=== PATIENT | female | born 1990 | race Caucasian/White ===

== ENCOUNTER 2019-11-09 23:28 | Emergency (ER) | payer OTHER, SELFPAY ==
[2019-11-09 23:38] VITALS: BP 190/89; PULSE 103; RESP 19; TEMP 36.5; O2SAT 95; BMI 25.4
[2019-11-09] MEDS: famotidine 20 mg/2 mL INJ 40 MG IVP (23:55)
[2019-11-09] MEDS: diphenhydrAMINE 50 mg/mL SDV 1mL IVP (23:55)
--- NOTE | 2019-11-10 00:06 | W.ED.ALLEREA ---
HPI - Allergic Reaction General: Chief complaint: Allergic Reaction Stated complaint: poss allergic reaction Time Seen by Provider: 11/09/19 23:52 Source: patient Mode of arrival: ambulatory Limitations: no limitations History of Present Illness: HPI narrative: Quita is a nice 29-year-old female who comes in complaining of allergic reaction. She believes she was exposed to a type of disinfectant that is causing her to act like this. She has diffuse hives and skin itching. She states she feels a little bit of tickling in her throat but otherwise denies any swallowing difficulties, shortness of breath or other complaints. Associated symptoms: Deny abdominal pain, dizziness, facial swelling, hoarseness, nausea, tongue swelling or vomiting Review of Systems Const: Denies: fever(s), chills, body aches, fatigue, malaise or diaphoresis Eyes: Denies: change in vision, blurry vision, photophobia, eye discomfort, eye discharge or eye redness ENMT: Denies: throat pain, odynophagia, hoarseness, swelling of lips/tongue, ear or mastoid pain, ear discharge, change in hearing or nasal discharge Card: Denies: chest pain, palpitations, irregular heart rhythm, edema, lightheadedness, syncope, pre-syncope, dyspnea on exertion or orthopnea Resp: Denies: dyspnea, productive cough, non-productive cough, wheezing, hemoptysis or chest congestion GI: Denies: abdominal pain, nausea, vomiting, hematemesis, coffee ground emesis, heartburn, diarrhea, constipation, GI cramping, hematochezia or melena : Denies: flank pain, dysuria, urinary frequency, urinary urgency or hematuria Musc: Denies: neck pain, back pain, extremity pain, extremity swelling, joint pain, joint swelling, joint redness, joint warmth or joint stiffness Skin/Breast: Denies: rash, pruritus, erythema or skin tenderness Neuro: Denies: headache(s), numbness in extremities, weakness in extremities, sensory changes, lack of coordination, difficulty walking, dizziness, vertigo, confusion, Slurred speech present or seizure-like activity Supa/Lymph: Denies: easy bruising, easy bleeding, petechiae, purpura or enlarged lymph nodes All/Imm: Reports: urticaria and throat swelling; Denies: tongue swelling, facial swelling or acute wheezing PFSH ED PFSH: Medical History No pertinent past medical history Surgical History No pertinent past surgical history Female Reproductive History: Date of last menstrual period: 11/09/19 Physical Exam Const: COMMON NORMALS: no acute distress, patient oriented x3, no limitations, healthy appearing and well nourished GENERAL APPEARANCE: cooperative, well kempt and well developed HENMT: COMMON NORMALS: normocephalic, atraumatic, external ears normal, EAC's normal and Normal external nose present HEAD & SCALP: normal to inspection, normocephalic and atraumatic FACE & SINUS: normal facial exam and face symmetric NOSE: Normal external nose present and Normal nares present EXTERNAL EAR: Yes external ears normal EXTERNAL AUDITORY CANAL: EAC's normal MOUTH: Normal oral and palatal mucosa present, lip normal and tongue normal Eye: COMMON NORMALS: Equal, round and reactive pupils present and conjunctivae normal GENERAL EYE: appearance normal, both eyes and all related structures ALIGNMENT: Yes alignment normal PERIORBITAL: periorbital findings normal EYELID: eyelids normal CONJUNCTIVA: Yes conjunctivae normal SCLERA: sclerae normal PUPIL: Yes Equal, round and reactive pupils present Neck/C-Spine: COMMON NORMALS: full ROM, no lymphadenopathy, supple, no meningeal signs and no JVD GENERAL: Yes normal visual inspection and Yes trachea midline Chest: COMMONS NORMALS: normal inspection of the chest and normal palpation of entire chest wall Resp: COMMON NORMALS: normal respiratory effort, No retractions, No use of accessory muscles and clear to auscultation bilaterally EFFORT & INSPECTION: Yes able to speak in complete sentences and Yes symmetric chest movement AUSCULTATION: clear to auscultation bilaterally, no crackles, no rales, no rhonchi and no wheezes Cardio: COMMON NORMALS: no JVD, regular rate, regular rhythm, S1 normal heart sound present and S2 normal heart sound present RATE: regular rate RHYTHM: regular rhythm HEART SOUNDS: S1 normal heart sound present, S2 normal heart sound present, no click, no gallops, no murmurs, no rubs and abnormal split S2 GI: COMMON NORMALS: Soft to palpation and No hepatosplenomegaly present PALPATION: Yes Soft to palpation, No Tenderness to palpation present (GI), No Guarding due to palpation present (GI), No Rigid due to palpation, Yes No hepatosplenomegaly present, No Hernia present, No Palpable mass present and No Pulsatile mass present : COMMON NORMALS: Yes no CVA tenderness BLADDER/KIDNEY EXAM: Yes no CVA tenderness EXTERNAL FEMALE EXAM: No Hernia present Back/Pelvis: COMMON NORMALS: no CVA tenderness, thoracic and lumbar spine normal to inspection, no thoracic nor lumbar tenderness and thoraco-lumbar ROM normal Extremity: COMMON NORMALS: normal to inspection, full ROM, capillary refill normal, no joint enlargement, no clubbing, cyanosis or edema and no calf tenderness Neuro: COMMON NORMALS: patient oriented x3, CN's II-XII intact bilaterally, moves all extremities, no focal motor deficits and no sensory deficits noted MENINGEAL SIGNS: Yes no meningeal signs SPEECH: speech normal Psych: COMMON NORMALS: mental status grossly normal, Normal thought process present, cooperative, normal affect, speech normal and activity/motor behavior normal APPEARANCE: Yes well kempt SPEECH: Yes normal speech THOUGHT PROCESS: Normal thought process present Skin: COMMON NORMALS: turgor normal, no jaundice, no petechiae and no mottling NARRATIVE SKIN EXAM: Diffuse hives of the torso and extremities GENERAL SKIN EXAM: turgor normal Course Vital Signs: Vital signs: Vital Signs Temperature 97.7 F 11/09/19 23:38 Pulse Rate 87 11/10/19 01:24 Respiratory Rate 16 11/10/19 01:24 Blood Pressure 151/92 11/10/19 01:24 Pulse Oximetry 94 11/10/19 01:24 MDM - Allergic Reaction MDM Narrative: Medical decision making narrative: Patient is feeling tremendously better and is ready to go home. Her hives of almost completely gone. She agrees to return should her symptoms change or worsen but at this time she is ready for discharge. Discharge Plan Discharge Patient Disposition: Home Clinical Impression: Allergic reaction Qualifiers: Encounter type: initial encounter Qualified Code(s): T78.40XA - Allergy, unspecified, initial encounter Condition: Stable Prescriptions: New prednisone 10 mg tablet 20 mg PO BID 5 Days Qty: 20 RF: 0 Discharge Orders: Discharge Order (Routine); Ordered 11/10/19 Ordered By: Milagro Alberto Referrals: Sean Paula MD [Primary Care Provider] - 1-3 days Discharge Diet: Advance as tolerated Discharge Activity: Increase activity as tolerated Patient Instructions: Urticaria (ED) Activity Restrictions/Additional Instructions: Please return to the ER immediately for any of the signs or symptoms listed on your discharge instruction sheets, worsening/changing of your symptoms, you are not getting better as quickly as expected, or for ANY other cause or concerns. For the next 2 days take Benadryl 25 to 50 mg every 6 hours. Also over the next 2 days take Pepcid 40 mg every 12 hours. Return to the ER for worsening of your hives, new onset of throat tightening or shortness of breath or for any other cause for concern. Discharge Date/Time: 11/10/19 01:30 Coding Level of Care Code ED Railroad Purchasing Agent for Bryant Fwcharli Exam Comprehensive
[2019-11-10 00:23] VITALS: BP 198/124; PULSE 81; RESP 18; O2SAT 95
[2019-11-10 01:24] VITALS: BP 151/92; PULSE 87; RESP 16; O2SAT 94
[2019-11-10] MEDS: predniSONE 20 mg Tablet 50 MG PO (01:24)
== END 2019-11-10 01:30 | disposition home or self-care (01) ==
PROVIDERS: Emergency Provider Emergency Medicine; PCP Family Medicine
DX: T78.40XA Allergy, unspecified, initial encounter (principal)
CPT/HCPCS: 12345; 96374; 96375; 99282; 99283; J1200; J2930; J3490; J7512

== ENCOUNTER 2021-03-17 17:06 | Emergency (ER) | payer OTHER, SELFPAY ==
[2021-03-17 17:13] VITALS: BP 206/109; PULSE 115; RESP 24; TEMP 37.2; O2SAT 90; BMI 22.6
--- NOTE | 2021-03-17 17:21 | ECG_ITS ---
[facility] Test Date: 2021-03-17 Pat Name: Quita Hairston Department: Room: Gender: Female Sponge Diver: : 1990 Requested By: Arturo Shane Order Number: [id number] Alston MD: Pauline Gardner M.D. Measurements Intervals Gate Rate: 111 P: 74 MN: 176 QRS: 80 QRSD: 67 T: 67 QT: 295 QTc: 401 Interpretive Statements SINUS TACHYCARDIA POSSIBLE LEFT ATRIAL ENLARGEMENT [-0.1mV P-WAVE IN V1/V2] NONSPECIFIC T-WAVE ABNORMALITY Compared to ECG 11/19/2017 12:21:56 Sinus rhythm no longer present T-wave abnormality still present Electronically Signed On 03-17-2021 22:02:05 [employer] by Pauline Gardner M.D. [id number]
--- NOTE | 2021-03-17 17:21 | XRR_ITS ---
PROCEDURE INFORMATION: Exam: XR Chest Exam date and time: 03/17/2021 5:21 PM Age: 30 years old Clinical indication: Shortness of breath; Sternal or substernal pain; Additional info: SOB and cp TECHNIQUE: Imaging protocol: XR of the chest. Views: 1 view. COMPARISON: CR Chest 1 [place] [id number] 11/19/2017 1:10 PM FINDINGS: Lungs: Unremarkable. No consolidation. Pleural spaces: Unremarkable. No pleural effusion. No pneumothorax. Heart/Mediastinum: Unremarkable. No cardiomegaly. Bones/joints: Unremarkable. XR/XR chest 1V portable [id number] IMPRESSION: No acute findings.
--- NOTE | 2021-03-17 17:27 | ED_ITS ---
HPI - SOB/Dyspnea General: Chief Complaint: Shortness of Breath/Dyspnea Stated Complaint: Sent by [facility] b/c o2 were dropping Time Seen by Provider: 03/17/21 17:45 History of Present Illness: HPI Narrative: Patient is a 30-year-old female comes to the ED with shortness of breath. Patient was seen over at [facility] earlier today and she was told to come here to the ED due to her O2 saturation levels dropping. Patient says yesterday she started having a sore throat and some nasal drainage and congestion. Today she woke up and was having some wheezing, shortness of breath and chest pressure type pain. Cough is dry and nonproductive. She also reports having some body aches as well. She does have a history of some asthma and uses a rescue inhaler when at home. In the past whenever she gets any upper respiratory infection she states it always goes down into her lungs. Associated symptoms: Reports chest pain; Deny abdominal pain, fever(s), nausea, orthopnea, palpitations or vomiting Review of Systems Const: Reports: body aches and fatigue; Denies: fever(s) or chills Eyes: Denies: change in vision or eye discomfort ENMT: Reports: throat pain, nasal discharge and nasal congestion; Denies: odynophagia Card: Reports: chest pain; Denies: palpitations, edema, swelling of feet/ankles, dyspnea on exertion or orthopnea Resp: Reports: dyspnea and non-productive cough; Denies: productive cough GI: Denies: abdominal pain, nausea, vomiting, diarrhea, constipation or hematochezia : Denies: flank pain, dysuria or hematuria Musc: Denies: neck pain, back pain or extremity swelling Skin/Breast: Denies: rash or new lesions Neuro: Denies: headache(s), numbness in extremities or weakness in extremities PFS ED PFSH: Medical History No pertinent past medical history Surgical History No pertinent past surgical history Female Reproductive History: Date of last menstrual period: 11/09/19 Physical Exam Const: COMMON NORMALS: patient oriented x3 and alert GENERAL APPEARANCE: cooperative and in distress HENMT: COMMON NORMALS: normocephalic HEAD & SCALP: normocephalic MOUTH: Normal oral and palatal mucosa present THROAT: posterior oropharynx normal and uvula midline Neck/C-Spine: COMMON NORMALS: supple GENERAL: Yes normal visual inspection Resp: COMMON NORMALS: normal respiratory effort, No retractions and No use of accessory muscles EFFORT & INSPECTION: Yes able to speak in complete sentences, Yes tachypneic, No respiratory distress and Yes labored AUSCULTATION: wheezes expiratory wheezes and throughout Cardio: COMMON NORMALS: regular rate, regular rhythm, S1 normal heart sound present, S2 normal heart sound present, No gallops present (Cardio), No clicks present (Cardio), No murmurs present (Cardio) and Peripheral pulses 2+ throughout RATE: regular rate RHYTHM: regular rhythm HEART SOUNDS: S1 normal heart sound present and S2 normal heart sound present PERIPHERAL PULSES: Peripheral pulses 2+ throughout GI: COMMON NORMALS: Normal to inspection, nondistended, normoactive bowel sounds present, Soft to palpation, non-tender and no masses PALPATION: Yes Soft to palpation : COMMON NORMALS: Yes no CVA tenderness BLADDER/KIDNEY EXAM: Yes no CVA tenderness Back/Pelvis: COMMON NORMALS: no CVA tenderness Extremity: COMMON NORMALS: normal to inspection Neuro: COMMON NORMALS: patient oriented x3 and moves all extremities SENSORIUM/ORIENTATION: Yes alert Skin: GENERAL SKIN EXAM: dry skin Course ED course: I saw the patient in triage and did an assessment history and exam on patient. The lab work-up and imaging was ordered as well. Patient does appear short of breath and has some bilateral expiratory wheezing upon auscul tation. Patient does need to be moved into a room as soon as possible. Vital Signs: Vital signs: Vital Signs Temperature 99.0 F 03/17/21 17:13 Pulse Rate 115 H 03/17/21 17:13 Respiratory Rate 24 H 03/17/21 17:13 Blood Pressure 206/109 03/17/21 17:13 Pulse Oximetry 90 03/17/21 17:13 MDM - SOB/Dyspnea Lab Data: Labs: Lab Results 03/17/21 03/17/21 03/17/21 17:37 17:37 17:37 WBC 12.8 10^3/uL H 10 ^3/uL (4.0-10.0) RBC 4.90 10^6/uL 10^6 /uL (4.1-5.3) Hgb 16.0 g/dL H g/dL (11.5-15.3) Hct 46.7 % % (37.0-47.0) MCV 95.3 fl fl (81-99) MCH 32.7 pg pg (28.0-34.0) MCHC 34.3 g/dL g/dL (30.0-36.0) RDW 12.7 % % (12.1-15.1) Plt Count 253 10^3/cmm 10^3 /cmm (130-400) MPV 9.6 fL fL (7.4-10.4) Neut % (Auto) 78.8 % % Lymph % (Auto) 13.8 % % [place] % (Auto) 5.1 % % Eos % (Auto) 1.4 % % Baso % (Auto) 0.5 % % Neut # (Auto) 10.10 10^3/uL H 1 0^3/uL (1.8-7.7) Lymph # (Auto) 1.8 10^3/uL 10^3/ uL (0.8-4.8) [place] # (Auto) 0.7 10^3/uL 10^3/ uL (0.2-0.9) Eos # (Auto) 0.2 10^3/uL 10^3/ uL (0.0-0.8) Baso # (Auto) 0.1 10^3/uL 10^3/ uL (0.0-0.1) Nucleated RBC % (a uto) 0 % % Nucleated RBCs # 0.0 /100WBC /100W BC D-Dimer <= 0.27 ug/mIFEU ug/mIFEU (0-0.59) Sodium 135 mmol/L L mmol /L (136-145) Potassium 4.2 mmol/L mmol/L (3.5-5.1) Chloride 99 mmol/L mmol/L (98-107) Carbon Dioxide 22 mmol/L mmol/L (22-29) Anion Gap 18.2 (5-19) BUN 5 mg/dL L mg/dL (6-20) Creatinine 0.6 mg/dL mg/dL (0.5-0.9) GFR Calculation 115.9 mL/min mL/m in (90-130) Glucose 91 mg/dL mg/dL (65-115) Calculated Osmolal ity 277 mOsm/kg L mOs m/kg (285-295) Calcium 8.7 mg/dL mg/dL (8.5-10.5) Total Bilirubin 0.3 mg/dL mg/dL (0.15-1.2) AST 16 U/L U/L (0-32) ALT 14 U/L U/L (0-33) Alkaline Phosphata se 92 IU/L IU/L (35-105) Troponin T Gen 5 n g/L C-Reactive Protein 15.5 mg/L H mg/L (0.0-4.9) Total Protein 7.0 g/dL g/dL (6.6-8.7) Albumin 4.6 g/dL g/dL (3.5-5.2) Globulin 2.4 g/dL g/dL (1.3-4.6) HCG, Qual 03/17/21 03/17/21 17:37 17:37 WBC RBC Hgb Hct MCV MCH MCHC RDW Plt Count MPV Neut % (Auto) Lymph % (Auto) [place] % (Auto) Eos % (Auto) Baso % (Auto) Neut # (Auto) Lymph # (Auto) [place] # (Auto) Eos # (Auto) Baso # (Auto) Nucleated RBC % (a uto) Nucleated RBCs # D-Dimer Sodium Potassium Chloride Carbon Dioxide Anion Gap BUN Creatinine GFR Calculation Glucose Calculated Osmolal ity Calcium Total Bilirubin AST ALT Alkaline Phosphata se Troponin T Gen 5 n g/L 6 ng/L ng/L (0-10) C-Reactive Protein Total Protein Albumin Globulin HCG, Qual Negative (Negative) Coding Level of Care Code ED Cardiology Technician for Chg Fwd Exam Comprehensive
[2021-03-17 17:50] LABS: Basophils # 0.1 10^3/uL (0.0-0.1); Basophils % 0.5 %; Eosinophils # 0.2 10^3/uL (0.0-0.8); Eosinophils % 1.4 %; Hematocrit 46.7 % (37.0-47.0); Lymphocytes # 1.8 10^3/uL (0.8-4.8); Lymphocytes % 13.8 %; Mean Corpuscular HGB Conc 34.3 g/dL (30.0-36.0); Mean Corpuscular Hemoglobin 32.7 pg (28.0-34.0); Mean Corpuscular Volume 95.3 fl (81-99); Mean Platelet Volume 9.6 fL (7.4-10.4); Monocytes # 0.7 10^3/uL (0.2-0.9); Monocytes % 5.1 %; Neutrophils % 78.8 %; Nucleated Red Blood Cells % 0 %; Platelet Count 253 10^3/cmm (130-400); Red Cell Distribution Width 12.7 % (12.1-15.1); White Blood Count 12.8 10^3/uL (4.0-10.0)
[2021-03-17 18:03] LABS: D Dimer <= 0.27 ug/mIFEU (0-0.59)
--- NOTE | 2021-03-17 18:06 | W.ED.SOB ---
HPI - SOB/Dyspnea General: Chief Complaint: Shortness of Breath/Dyspnea Stated Complaint: Sent by [facility] b/c o2 were dropping Time Seen by Provider: 03/17/21 17:45 Source: patient Mode of arrival: ambulatory Limitations: no limitations History of Present Illness: HPI Narrative: 30-year-old female who states been having cough congestion wheezing and shortness of breath over the last 2 to 3 days she had a sore throat with slight fevers. Patient was seen at [facility] and was hypoxic patient having mild hypoxic here to is on 2 L currently. She is a smoker denies any known sick contacts she had no vomiting diarrhea. Associated symptoms: Deny abdominal pain, chest pain, nausea or vomiting Review of Systems Const: Reports: body aches Eyes: Denies: blurry vision or eye discomfort ENMT: Reports: throat pain Card: Denies: chest pain Resp: Reports: dyspnea, non-productive cough and wheezing GI: Denies: abdominal pain, nausea, vomiting or diarrhea : Denies: dysuria Musc: Denies: neck pain or back pain Skin/Breast: Denies: rash Neuro: Denies: headache(s) Psych: Denies: depression Supa/Lymph: Denies: easy bruising All/Imm: Denies: urticaria PFSH ED PFSH: Medical History (Updated 03/17/21 @ 19:15 by Kai Olmstead MD) No pertinent past medical history Surgical History No pertinent past surgical history Female Reproductive History: Date of last menstrual period: 11/09/19 Physical Exam Const: COMMON NORMALS: no acute distress, patient oriented x3 and healthy appearing HENMT: COMMON NORMALS: normocephalic and atraumatic HEAD & SCALP: normocephalic and atraumatic Eye: COMMON NORMALS: Equal, round and reactive pupils present and EOMs intact bilaterally PUPIL: Yes Equal, round and reactive pupils present Neck/C-Spine: COMMON NORMALS: full ROM and supple Chest: COMMONS NORMALS: normal inspection of the chest and normal palpation of entire chest wall Resp: COMMON NORMALS: normal respiratory effort, No retractions and No use of accessory muscles AUSCULTATION: wheezes Cardio: COMMON NORMALS: regular rate, regular rhythm and No murmurs present (Cardio) RATE: regular rate RHYTHM: regular rhythm GI: COMMON NORMALS: Normal to inspection, nondistended, normoactive bowel sounds present, Soft to palpation, non-tender and no masses PALPATION: Yes Soft to palpation Extremity: COMMON NORMALS: normal to inspection and full ROM Neuro: COMMON NORMALS: patient oriented x3, moves all extremities and no focal motor deficits Psych: COMMON NORMALS: mental status grossly normal, Normal thought process present and cooperative THOUGHT PROCESS: Normal thought process present Skin: COMMON NORMALS: no rashes or lesions noted and no wounds GENERAL SKIN EXAM: no rashes or lesions noted Course Vital Signs: Vital signs: Vital Signs Temperature 99.0 F 03/17/21 17:13 Pulse Rate 131 H 03/17/21 19:26 Respiratory Rate 24 H 03/17/21 19:26 Blood Pressure 177/87 03/17/21 19:14 Pulse Oximetry 96 03/17/21 19:26 MDM - SOB/Dyspnea MDM Narrative: Medical decision making narrative: Patient presents here with cough congestion wheezing likely reactive airway disease patient likely has early COPD from her smoking no signs of Covid no signs of infection she feels much improved here after breathing treatment will prescribe albuterol along with prednisone. Lab Data: Labs: Lab Results 03/17/21 03/17/21 03/17/21 17:37 17:37 17:37 WBC 12.8 10^3/uL H 10 ^3/uL (4.0-10.0) RBC 4.90 10^6/uL 10^6 /uL (4.1-5.3) Hgb 16.0 g/dL H g/dL (11.5-15.3) Hct 46.7 % % (37.0-47.0) MCV 95.3 fl fl (81-99) MCH 32.7 pg pg (28.0-34.0) MCHC 34.3 g/dL g/dL (30.0-36.0) RDW 12.7 % % (12.1-15.1) Plt Count 253 10^3/cmm 10^3 /cmm (130-400) MPV 9.6 fL fL (7.4-10.4) Neut % (Auto) 78.8 % % Lymph % (Auto) 13.8 % % [place] % (Auto) 5.1 % % Eos % (Auto) 1.4 % % Baso % (Auto) 0.5 % % Neut # (Auto) 10.10 10^3/uL H 1 0^3/uL (1.8-7.7) Lymph # (Auto) 1.8 10^3/uL 10^3/ uL (0.8-4.8) [place] # (Auto) 0.7 10^3/uL 10^3/ uL (0.2-0.9) Eos # (Auto) 0.2 10^3/uL 10^3/ uL (0.0-0.8) Baso # (Auto) 0.1 10^3/uL 10^3/ uL (0.0-0.1) Nucleated RBC % (a uto) 0 % % Nucleated RBCs # 0.0 /100WBC /100W BC D-Dimer <= 0.27 ug/mIFEU ug/mIFEU (0-0.59) Sodium 135 mmol/L L mmol /L (136-145) Potassium 4.2 mmol/L mmol/L (3.5-5.1) Chloride 99 mmol/L mmol/L (98-107) Carbon Dioxide 22 mmol/L mmol/L (22-29) Anion Gap 18.2 (5-19) BUN 5 mg/dL L mg/dL (6-20) Creatinine 0.6 mg/dL mg/dL (0.5-0.9) GFR Calculation 115.9 mL/min mL/m in (90-130) Glucose 91 mg/dL mg/dL (65-115) Calculated Osmolal ity 277 mOsm/kg L mOs m/kg (285-295) Lactic Acid Calcium 8.7 mg/dL mg/dL (8.5-10.5) Total Bilirubin 0.3 mg/dL mg/dL (0.15-1.2) AST 16 U/L U/L (0-32) ALT 14 U/L U/L (0-33) Alkaline Phosphata se 92 IU/L IU/L (35-105) Troponin T Gen 5 n g/L C-Reactive Protein 15.5 mg/L H mg/L (0.0-4.9) Total Protein 7.0 g/dL g/dL (6.6-8.7) Albumin 4.6 g/dL g/dL (3.5-5.2) Globulin 2.4 g/dL g/dL (1.3-4.6) HCG, Qual Nasal Influ A H1 2 009 PCR Coronavirus 229E ( PCR) Human Metapneumovi r PCR Influenza A (H1) P CR Influenza A (H3) P CR Influenza Type A ( PCR) Influenza Type B ( PCR) Entero/Rhino (PCR) SARS-CoV-2 (PCR) 03/17/21 03/17/21 03/17/21 17:37 17:37 17:37 WBC RBC Hgb Hct MCV MCH MCHC RDW Plt Count MPV Neut % (Auto) Lymph % (Auto) [place] % (Auto) Eos % (Auto) Baso % (Auto) Neut # (Auto) Lymph # (Auto) [place] # (Auto) Eos # (Auto) Baso # (Auto) Nucleated RBC % (a uto) Nucleated RBCs # D-Dimer Sodium Potassium Chloride Carbon Dioxide Anion Gap BUN Creatinine GFR Calculation Glucose Calculated Osmolal ity Lactic Acid Calcium Total Bilirubin AST ALT Alkaline Phosphata se Troponin T Gen 5 n g/L 6 ng/L ng/L (0-10) C-Reactive Protein Total Protein Albumin Globulin HCG, Qual Negative (Negative) Nasal Influ A H1 2 009 PCR Not detected (NOT DETECT) Coronavirus 229E ( PCR) Not detected (NOT DETECT) Human Metapneumovi r PCR Influenza A (H1) P CR Not detected (NOT DETECT) Influenza A (H3) P CR Not detected (NOT DETECT) Influenza Type A ( PCR) Not detected (NOT DETECT) Influenza Type B ( PCR) Not detected (NOT DETECT) Entero/Rhino (PCR) SARS-CoV-2 (PCR) Not detected (NOT DETECT) 03/17/21 03/17/21 18:39 19:45 WBC RBC Hgb Hct MCV MCH MCHC RDW Plt Count MPV Neut % (Auto) Lymph % (Auto) [place] % (Auto) Eos % (Auto) Baso % (Auto) Neut # (Auto) Lymph # (Auto) [place] # (Auto) Eos # (Auto) Baso # (Auto) Nucleated RBC % (a uto) Nucleated RBCs # D-Dimer Sodium Potassium Chloride Carbon Dioxide Anion Gap BUN Creatinine GFR Calculation Glucose Calculated Osmolal ity Lactic Acid 2.0 mmol/L mmol/L (0.5-2.2) Calcium Total Bilirubin AST ALT Alkaline Phosphata se Troponin T Gen 5 n g/L C-Reactive Protein Total Protein Albumin Globulin HCG, Qual Nasal Influ A H1 2 009 PCR Coronavirus 229E ( PCR) Human Metapneumovi r PCR Not detected (NOT DETECT) Influenza A (H1) P CR Influenza A (H3) P CR Influenza Type A ( PCR) Influenza Type B ( PCR) Entero/Rhino (PCR) Detected A (NOT DETECT) SARS-CoV-2 (PCR) Imaging Data^: CXR: Attestation: I personally reviewed and interpreted this imaging study as follows: My impression: no acute abnormality EKG Data^: EKG 1: Attestation: I personally reviewed and interpreted this EKG as follows: EKG Interpretation Date: 03/17/21 EKG interpretation time: 17:23 Interpretation: sinus tach hr [address] or t wave abnormalities qrs 67 qtc 360 Discharge Plan Discharge Patient Disposition: Home Clinical Impression: Reactive airway disease Condition: Stable Prescriptions: New prednisone 50 mg tablet 50 mg PO DAILY Qty: 5 RF: 0 albuterol sulfate 90 mcg/actuation HFA aerosol inhaler 2 inh INHALATION Q6H PRN (Reason: shortness of breath or wheezing) Qty: 8 RF: 0 Discharge Orders: Discharge ED (Routine); Ordered 03/17/21 Ordered By: Kai Olmstead Referrals: Sean Paula MD [Primary Care Provider] - 1-3 days Discharge Diet: Advance as tolerated Discharge Activity: Resume usual activity Patient Instructions: Reactive Airways Disease (ED) Coding Level of Care Code ED Technical Specialist Cytogenetics for Chg Fwd Exam Comprehensive
[2021-03-17 18:08] LABS: HCG, Serum Qual Negative (Negative)
[2021-03-17 18:10] LABS: Troponin T (5th) Once 6 ng/L (0-10)
[2021-03-17 18:14] LABS: Alanine Aminotransferase 14 U/L (0-33); Albumin Level 4.6 g/dL (3.5-5.2); Alkaline Phosphatase 92 IU/L (35-105); Anion Gap 18.2 (5-19); Aspartate Amino Transferase 16 U/L (0-32); Blood Urea Nitrogen 5 mg/dL (6-20); C Reactive Protein 15.5 mg/L (0.0-4.9); Calcium 8.7 mg/dL (8.5-10.5); Carbon Dioxide 22 mmol/L (22-29); Chloride 99 mmol/L (98-107); Globulin 2.4 g/dL (1.3-4.6); Glomerular Filtration Rate 115.9 mL/min (90-130); Glucose 91 mg/dL (65-115); Osmolality Calculated 277 mOsm/kg (285-295); Potassium 4.2 mmol/L (3.5-5.1); Sodium 135 mmol/L (136-145); Total Bilirubin 0.3 mg/dL (0.15-1.2)
[2021-03-17] MEDS: ipratropium-albuterol 3 mL Neb INHALATION (18:22)
[2021-03-17 18:23] VITALS: PULSE 108; RESP 20; O2SAT 93
[2021-03-17 18:26] VITALS: PULSE 111; RESP 20; O2SAT 94
[2021-03-17] MEDS: hyDRALAzine 20 mg/mL INJ 1 mL 10 MG IVP (18:42)
[2021-03-17 19:14] VITALS: BP 177/87; PULSE 136; O2SAT 97
[2021-03-17 19:26] VITALS: PULSE 131; RESP 24; O2SAT 96
[2021-03-17 19:30] LABS: Adenovirus Not Detected (NOT DETECT); Chlamydia Pneumoniae Not Detected (NOT DETECT); Coronavirus 229E,HKU1,NL63,OC4 Not Detected (NOT DETECT); Human Metapneumovirus Not Detected (NOT DETECT); Human Rhinovirus/Enterovirus Detected (NOT DETECT); Influenza A Not Detected (NOT DETECT); Influenza A H1 Not Detected (NOT DETECT); Influenza A H1-2009 Not Detected (NOT DETECT); Influenza A H3 Not Detected (NOT DETECT); Influenza B Not Detected (NOT DETECT); Mycoplasma Pneumoniae Not Detected (NOT DETECT); Parainfluenza Virus Type 1 Not Detected (NOT DETECT); Parainfluenza Virus Type 2 Not Detected (NOT DETECT); Parainfluenza Virus Type 3 Not Detected (NOT DETECT); Parainfluenza Virus Type 4 Not Detected (NOT DETECT); Respiratory Syncytial Virus A Not Detected (NOT DETECT); Respiratory Syncytial Virus B Not Detected (NOT DETECT); SARS-COV-2 Not Detected (NOT DETECT)
[2021-03-17 19:45] LABS: Human Metapneumovirus Not Detected (NOT DETECT); Human Rhinovirus/Enterovirus Detected (NOT DETECT); Results from Genmark
[2021-03-17 22:18] LABS: Results from Genmark
[2021-03-19 13:39] LABS: ABG PCO2 37.5 mmHg (35-45); ABG PH Result 7.41 (7.35-7.45); Base Excess ABG -0.4 mmol/L (-2.0-2.0); Blood Gas Allen Test Pos; Blood Gas Sample Site Radial, left; Blood Gas Sample Type Arterial; HCO3 ABG 23.9 mmol/L (22-26); Oxygen Device NC; PO2 ABG 84.8 mmHg (80.0-100.0)
== END 2021-03-17 19:42 | disposition home or self-care (01) ==
PROVIDERS: Physician Assistant; Emergency Provider Emergency Medicine; PCP Family Medicine
DX: J45.909 Unspecified asthma, uncomplicated (principal); F17.210 Nicotine dependence, cigarettes, uncomplicated
CPT/HCPCS: 36415; 36600; 71045; 80053; 82803; 83605; 84484; 84703; 85025; 85378; 86140; 87040; 87631; 87635; 87801; 93005; 94640; 96374; 96375; 99284; J0360; J2930; J7611

== ENCOUNTER 2021-03-27 10:13 | Emergency (ER) | payer OTHER, SELFPAY ==
[2021-03-27 10:16] VITALS: BP 217/122; PULSE 79; RESP 18; TEMP 36.7; O2SAT 97; BMI 22.4
--- NOTE | 2021-03-27 10:24 | XR_ITS ---
WS: [id number] CHEST XRAY TECHNIQUE: Portable chest. CLINICAL INFORMATION: chest pain COMPARISON: March 17, 2021 FINDINGS: Heart: Normal cardiac silhouette. Lungs: Lungs are clear. No consolidation or pleural effusion. Bones: Normal visualized bony structures. XR/XR chest 1V portable [id number] IMPRESSION: Normal chest
--- NOTE | 2021-03-27 10:24 | ECG_ITS ---
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 Measurements Intervals [place] Rate: 66 P: 58 MO: 149 QRS: 72 QRSD: 73 T: 64 QT: 357 QTc: 375 Interpretive Statements SINUS RHYTHM Compared to ECG 03/17/2021 17:23:09 Sinus tachycardia no longer present T-wave abnormality no longer present Electronically Signed On 03-28-2021 4:49:01 CLINICAL DIETETIC TECHNICIAN by Jin Santoro M.D. [email or web address] [facility] meridianCTMGst. [facility].Cameo/store/NU/[id number] f
--- NOTE | 2021-03-27 10:24 | ED_ITS ---
HPI - Chest Pain General: Chief Complaint: Chest Pain Stated Complaint: CP/TIGHTNESS THROUGH TO BACK, PAIN DOWN L ARM Time Seen by Provider: 03/27/21 10:17 History of Present Illness: HPI narrative: 30-year-old female presents emergency room complaining of chest pain radiates into her back and into her arms. She had this for the last couple of days. She was seen a few days ago tested for Covid on a respiratory panel at a positive enterorhinovirus PCR. She is not had a productive cough she denies any vomiting but has had some diarrhea. No dysuria urgency or frequency patient has history hypertension is on hydrochlorothiazide also looks like she was started on prednisone at the time of her last visit. She is not previously had Covid nor she been vaccinated. No history of heart disease or arrhythmias. MD complaint: chest pain Onset (ago): hour(s) Timing of current episode: episodic Onset: during rest Pain location: left chest Pain radiation: left arm, back and left shoulder Quality: tightness and aching Relieving factors: nothing Exacerbating factors: nothing Associated symptoms: Deny abdominal pain, diaphoresis, dyspnea, fever(s), leg edema, nausea, palpitations, sense of impending doom, syncope or vomiting Treatment prior to arrival: none Review of Systems Const: Denies: fever(s) or diaphoresis ENMT: Denies: throat pain, ear or mastoid pain, nasal discharge or nasal congestion Card: Denies: palpitations or syncope Resp: Denies: dyspnea GI: Denies: abdominal pain, nausea or vomiting : Denies: flank pain, difficulty voiding, dysuria, urinary frequency or urinary urgency Skin/Breast: Denies: rash or pruritus COUNT INCLUDES THE [facility] ED PFSH: Medical History (Updated 03/27/21 @ 14:[address] DO) No pertinent past medical history Surgical History No pertinent past surgical history Female Reproductive History: Date of last menstrual period: 11/09/19 Physical Exam Const: COMMON NORMALS: no acute distress GENERAL APPEARANCE: cooperative and comfortable ORIENTATION/CONSCIOUSNESS: Yes awake, Yes oriented to person, Yes oriented to place and Yes oriented to time HENMT: COMMON NORMALS: normocephalic, atraumatic and hearing grossly normal bilaterally HEAD & SCALP: normocephalic and atraumatic Neck/C-Spine: COMMON NORMALS: no JVD Resp: COMMON NORMALS: normal respiratory effort, No retractions, No use of accessory muscles and clear to auscultation bilaterally AUSCULTATION: clear to auscultation bilaterally Cardio: COMMON NORMALS: no JVD, regular rate, regular rhythm and No murmurs present (Cardio) RATE: regular rate RHYTHM: regular rhythm GI: COMMON NORMALS: Soft to palpation and No hepatosplenomegaly present AUSCULTATION: Yes normoactive bowel sounds PALPATION: Yes Soft to palpation, No Tenderness to palpation present (GI), No Guarding due to palpation present (GI) and Yes No hepatosplenomegaly present Extremity: COMMON NORMALS: normal to inspection, capillary refill normal, no clubbing, cyanosis or edema, no calf tenderness and no pedal edema Neuro: SENSORIUM/ORIENTATION: Yes oriented to person, Yes oriented to place and Yes oriented to time Skin: COMMON NORMALS: no rashes or lesions noted GENERAL SKIN EXAM: no rashes or lesions noted Course Vital Signs: Vital signs: Vital Signs Temperature 98.0 F 03/27/21 10:16 Pulse Rate 88 03/27/21 11:09 Respiratory Rate 14 03/27/21 11:09 Blood Pressure 142/98 03/27/21 11:09 Pulse Oximetry 98 03/27/21 11:09 MDM - Chest Pain MDM Narrative: Medical decision making narrative: Labs imaging and EKG reviewed. Blood pressure is markedly elevated working going started on amlodipine 10 mg daily and lisinopril 20 mg daily. We will have her set up to follow-up with her primary care doctor next week and reevaluate her blood press ure. Her chest pain is somewhat reproducible EKG and her cardiac enzymes are negative we will set her up for an outpatient Lexiscan sestamibi stress test. Lab Data: Labs: Lab Results 03/27/21 03/27/21 03/27/21 10:32 10:32 10:32 WBC 12.1 10^3/uL H 10 ^3/uL (4.0-10.0) RBC 5.30 10^6/uL 10^6 /uL (4.1-5.3) Hgb 17.0 g/dL H g/dL (11.5-15.3) Hct 49.3 % H % (37.0-47.0) MCV 93.0 fl fl (81-99) MCH 32.1 pg pg (28.0-34.0) MCHC 34.5 g/dL g/dL (30.0-36.0) RDW 12.7 % % (12.1-15.1) Plt Count 275 10^3/cmm 10^3 /cmm (130-400) MPV 9.4 fL fL (7.4-10.4) Neut % (Auto) 71.5 % % Lymph % (Auto) 19.4 % % [place] % (Auto) 6.4 % % Eos % (Auto) 1.7 % % Baso % (Auto) 0.5 % % Neut # (Auto) 8.62 10^3/uL H 10 ^3/uL (1.8-7.7) Lymph # (Auto) 2.3 10^3/uL 10^3/ uL (0.8-4.8) [place] # (Auto) 0.8 10^3/uL 10^3/ uL (0.2-0.9) Eos # (Auto) 0.2 10^3/uL 10^3/ uL (0.0-0.8) Baso # (Auto) 0.1 10^3/uL 10^3/ uL (0.0-0.1) Nucleated RBC % (a uto) 0 % % Nucleated RBCs # 0.0 /100WBC /100W BC Sodium 136 mmol/L mmol/L (136-145) Potassium 3.8 mmol/L mmol/L (3.5-5.1) Chloride 98 mmol/L mmol/L (98-107) Carbon Dioxide 23 mmol/L mmol/L (22-29) Anion Gap 18.8 (5-19) BUN 12 mg/dL mg/dL (6-20) Creatinine 0.6 mg/dL mg/dL (0.5-0.9) GFR Calculation 115.9 mL/min mL/m in (90-130) Glucose 89 mg/dL mg/dL (65-115) Calculated Osmolal ity 281 mOsm/kg L mOs m/kg (285-295) Calcium 9.1 mg/dL mg/dL (8.5-10.5) Total Bilirubin 0.3 mg/dL mg/dL (0.15-1.2) AST 15 U/L U/L (0-32) ALT 21 U/L U/L (0-33) Alkaline Phosphata se 74 IU/L IU/L (35-105) Creatine Kinase 48 U/L U/L (26-192) Troponin T Baselin e 6 ng/L ng/L (0-10) Troponin T 120 Min minto Delta Troponin T Total Protein 7.3 g/dL g/dL (6.6-8.7) Albumin 4.6 g/dL g/dL (3.5-5.2) Globulin 2.7 g/dL g/dL (1.3-4.6) Urine Opiates Scre en Ur Barbiturates Sc reen Ur Phencyclidine S crn Ur Amphetamines Sc reen U Benzodiazepines Scrn Urine Cocaine Scre en U Marijuana (THC) Screen 03/27/21 03/27/21 12:55 13:54 WBC RBC Hgb Hct MCV MCH MCHC RDW Plt Count MPV Neut % (Auto) Lymph % (Auto) [place] % (Auto) Eos % (Auto) Baso % (Auto) Neut # (Auto) Lymph # (Auto) [place] # (Auto) Eos # (Auto) Baso # (Auto) Nucleated RBC % (a uto) Nucleated RBCs # Sodium Potassium Chloride Carbon Dioxide Anion Gap BUN Creatinine GFR Calculation Glucose Calculated Osmolal ity Calcium Total Bilirubin AST ALT Alkaline Phosphata se Creatine Kinase Troponin T Baselin e Troponin T 120 Min minto 6.00 ng/L ng/L (0-10) Delta Troponin T 0 ABS# ABS# (0-10) Total Protein Albumin Globulin Urine Opiates Scre en Negative ng/mL ng /mL (Negative) Ur Barbiturates Sc reen Negative ng/mL ng /mL (Negative) Ur Phencyclidine S crn Negative ng/mL ng /mL (Negative) Ur Amphetamines Sc reen Negative ng/mL ng /mL (Negative) U Benzodiazepines Scrn Negative ng/mL ng /mL (Negative) Urine Cocaine Scre en Negative ng/mL ng /mL (Negative) U Marijuana (THC) Screen Negative ng/mL ng /mL (Negative) Discharge Plan Discharge Patient Disposition: Home Clinical Impression: Atypical chest pain, HTN (hypertension) Condition: Stable Prescriptions: New amlodipine 10 mg tablet 10 mg PO DAILY Qty: 30 RF: 0 lisinopril 20 mg tablet 20 mg PO DAILY Qty: 30 RF: 0 No Action prednisone 50 mg tablet 50 mg PO DAILY Qty: 5 RF: 0 albuterol sulfate 90 mcg/actuation HFA aerosol inhaler 2 inh INHALATION Q6H PRN (Reason: shortness of breath or wheezing) Qty: 8 RF: 0 Discharge Orders: Discharge ED (Routine); Ordered 03/27/21 Ordered By: Surjit Street Referrals: Sean Paula MD [Primary Care Provider] - Discharge Diet: Usual diet Discharge Activity: Resume usual activity Patient Instructions: Opioid Safety Activity Restrictions/Additional Instructions: Check your blood pressure with primary care doctor in the next 4 to 5 days. Coding Level of Care Code ED Dental Nurse for Bryant Fwd Exam Comprehensive
[2021-03-27 10:38] LABS: Basophils # 0.1 10^3/uL (0.0-0.1); Basophils % 0.5 %; Eosinophils # 0.2 10^3/uL (0.0-0.8); Eosinophils % 1.7 %; Hematocrit 49.3 % (37.0-47.0); Lymphocytes # 2.3 10^3/uL (0.8-4.8); Lymphocytes % 19.4 %; Mean Corpuscular HGB Conc 34.5 g/dL (30.0-36.0); Mean Corpuscular Hemoglobin 32.1 pg (28.0-34.0); Mean Platelet Volume 9.4 fL (7.4-10.4); Monocytes # 0.8 10^3/uL (0.2-0.9); Monocytes % 6.4 %; Neutrophils # 8.62 10^3/uL (1.8-7.7); Neutrophils % 71.5 %; Nucleated Red Blood Cells % 0 %; Platelet Count 275 10^3/cmm (130-400); Red Cell Distribution Width 12.7 % (12.1-15.1); White Blood Count 12.1 10^3/uL (4.0-10.0)
[2021-03-27 10:59] LABS: Alanine Aminotransferase 21 U/L (0-33); Albumin Level 4.6 g/dL (3.5-5.2); Alkaline Phosphatase 74 IU/L (35-105); Anion Gap 18.8 (5-19); Aspartate Amino Transferase 15 U/L (0-32); Blood Urea Nitrogen 12 mg/dL (6-20); Calcium 9.1 mg/dL (8.5-10.5); Carbon Dioxide 23 mmol/L (22-29); Chloride 98 mmol/L (98-107); Creatine Phosphokinase 48 U/L (26-192); Globulin 2.7 g/dL (1.3-4.6); Glomerular Filtration Rate 115.9 mL/min (90-130); Glucose 89 mg/dL (65-115); Osmolality Calculated 281 mOsm/kg (285-295); Potassium 3.8 mmol/L (3.5-5.1); Sodium 136 mmol/L (136-145); Total Bilirubin 0.3 mg/dL (0.15-1.2); Total Protein 7.3 g/dL (6.6-8.7)
[2021-03-27 11:00] LABS: Troponin(5th) Baseline 6 ng/L (0-10)
--- NOTE | 2021-03-27 11:00 | PC.NURSE ---
Whitney blood pressure checked; 222/118
[2021-03-27] MEDS: amlodipine 10 mg Tablet PO (11:03)
[2021-03-27] MEDS: labetalol 5 mg/mL SDV 20mL 10 MG IVP (11:03)
[2021-03-27] MEDS: hyDRALAzine 20 mg/mL INJ 1 mL IVP (11:05)
[2021-03-27 11:09] VITALS: BP 142/98; PULSE 88; RESP 14; O2SAT 98
--- NOTE | 2021-03-27 12:01 | PC.NURSE ---
Pt states she is still having chest pain, Dr. Street updated
--- NOTE | 2021-03-27 12:24 | ECG_ITS ---
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 Measurements Intervals [place] Rate: 80 P: 68 [place]: 163 QRS: 73 QRSD: 80 T: 56 QT: 359 QTc: 416 Interpretive Statements SINUS RHYTHM Compared to ECG 03/17/2021 17:23:09 Sinus tachycardia no longer present T-wave abnormality no longer present Electronically Signed On 03-28-2021 4:51:45 TRACTOR ENGINE MECHANIC by Jin Santoro M.D. [email or web address]/store/[id number]
[2021-03-27 13:23] LABS: Amphetamines Screen Urine Negative (Negative); Barbiturates Screen Urine Negative (Negative); Benzodiazepines Screen Urine Negative (Negative); Cocaine Screen Urine Negative (Negative); Opiate Screen Urine Negative (Negative); PCP Screen Urine Negative (Negative); THC Screen Urine Negative (Negative)
[2021-03-27 14:24] LABS: Troponin 5 2HR Delta 0 ABS# (0-10)
--- NOTE | 2021-04-02 10:58 | DCPLANNER ---
Addendum entered by Divina Solorio 07/16/21 11:35: Patient had an outpatient stress test scheduled for 06.22.21 - patient did attend appointment. Addendum entered by Divina Solorio 06/19/21 13:13: Patient has an out patient stress test scheduled for Tuesday, June 22, 2021 at 11:30. Centralized scheduling will call patient with appointment information. Original Note: item repair manager had message to schedule an outpatient stress test for patient. item repair manager faxed signed order to centralized scheduling, who will call patient with appointment information.
== END 2021-03-27 14:46 | disposition home or self-care (01) ==
PROVIDERS: Emergency Provider Family Medicine; PCP Family Medicine
DX: R07.89 Other chest pain (principal); I10 Essential (primary) hypertension
CPT/HCPCS: 71045; 80053; 80306; 82550; 84484; 85025; 93005; 96374; 96375; 99284; 99291; J0360; J3490

== ENCOUNTER 2021-06-22 08:50 | Outpatient (CLI) | payer OTHER, SELFPAY ==
[2021-06-22 09:19] VITALS: BMI 23.4
--- NOTE | 2021-06-22 09:24 | ECG_ITS ---
[facility] Test Date: 2021-06-22 Pat Name: Quita Hairston Department: Room: Gender: Female Wet Process Technician: Esperanza Ruth : 1990 Requested By: Surjit Carter Order Number: [id number] Gamaliel MD: Kerry Norton M.D. Interpretive Statements NAME OF STUDY: LEXISCAN SESTAMIBI STRESS TEST INDICATION: Atypical Chest Pain, PROCEDURE: At the baseline, the EKG revealed normal sinus rhythm with a normal ST Ts.. The baseline blood pressure was 144/103 mm Hg with a heart rate of 97 beats/min. Lexiscan was infused over a period of 20 seconds. A total of 0.4 milligrams of Lexiscan was infused. The stress phase was continued for a total of 5 minutes. Heart rate at the end of the stress phase was 112 with a blood pressure 155/67. The EKG at the peak infusion revealed some nonspecific ST-T changes. Sestamibi was injected 20 seconds after the Lexiscan infusion. Blood pressure at the end of the recovery phase was 152/71 with a heart rate of 90 per minute. CONCLUSION: 1. Nonspecific EKG changes with the LexiScan infusion 2. No LexiScan induced chest pain or cardiac arrhythmia 3. Normal blood pressure and heart rate response 4. Sestamibi/sestamibi perfusion scan pending; see separate report. Electronically Signed On 06-26-2021 14:10:24 CDT by Kerry Norton M.D. [email or web address] [email or web address].[email or web address]/store/[id number]
--- NOTE | 2021-06-22 09:25 | NMCV_ITS ---
NM glo perf SPECT r/s* [id number] Quita Hairston Age: 30 Gender: F : 1990 Exam Date: 06/22/2021 10:13 Ordering Phys: Surjit Street DO Technologist: NOLBERTO Miranda Exam Location: [facility] [address] Indications: ATYPICAL CHEST PAIN STRESS TEST Please see separate stress test report in [facility] for full findings IMAGE PROTOCOL Rest/Stress 1 Lexiscan Day Radiopharmaceutical Dose (mCi) Administration Site Administered by Rest: Tc-99m 10.5 IV NOLBERTO Rodriguez Sestamibi Stress:Tc-99m 32.6 IV NOLBERTO Rodriguez Sestamibi Rest: 22-Jun-2021 60 Discovery 630 Stress: 22-Jun-2021 30 Discovery 630 0.4mg Lexiscan. Images obtained in supine and prone position. SPECT RESULTS Technical Quality: Excellent Raw Data Analysis: Normal Image Corrections: No attenuation or motion correction applied Summed Stress Score: 0 Summed Rest Score: 0 Summed Difference Score: 0 PERFUSION FINDINGS Fairly uniform myocardial tracer uptake. No significant perfusion abnormalities FUNCTIONAL RESULTS (calculated via Gated SPECT) Stress Image LV EF (%): 90 Stress EDV (mL):51 TID: 1.13 Stress ESV (mL):5 FUNCTIONAL FINDINGS: Segmental wall motion analysis revealing no gross wall motion normalities IMPRESSIONS 1. Unremarkable myocardial perfusion imaging. 2. Normal LV ejection fraction of 90%. 3. LV wall motion analysis revealing no gross wall motion abnormalities. 4. Normal LV volume Low probability for coronary ischemia, based on the above findings Dr Kerry Norton MD FAC (Electronically Signed) Final Date: 22 June 2021 12:49 S
[2021-06-22 10:55] VITALS: BP 152/71; PULSE 90
[2021-06-22] MEDS: regadenoson 0.4 Mg/5 ml Syringe IVP (10:55)
== END 2021-06-22 08:51 | disposition home or self-care (01) ==
PROVIDERS: PCP Family Medicine; Visit Provider Family Medicine
DX: R07.89 Other chest pain (principal); R06.02 Shortness of breath
CPT/HCPCS: 78452; 93017; A9500; J2785

== ENCOUNTER 2021-12-15 16:40 | Emergency (ER) | payer OTHER, SELFPAY ==
[2021-12-15 17:12] VITALS: BMI 25.5
[2021-12-15 17:15] VITALS: BP 142/90; PULSE 91; RESP 18; TEMP 36.8; O2SAT 95
--- NOTE | 2021-12-15 18:52 | CTR_ITS ---
PROCEDURE INFORMATION: Exam: CT Head Without Contrast Exam date and time: 12/15/2021 7:30 PM Age: 31 years old Clinical indication: Pain; Headache; Migraine; Additional info: First migraine TECHNIQUE: Imaging protocol: Computed tomography of the head without contrast. Radiation optimization: All CT scans at this facility use at least one of these dose optimization techniques: automated exposure control; mA and/or kV adjustment per patient size (includes targeted exams where dose is matched to clinical indication); or iterative reconstruction. COMPARISON: No relevant prior studies available. RADIATION DOSE METRICS: Total DLP (mGy-cm): 1054.18 FINDINGS: Brain: Normal. No hemorrhage. Unremarkable white matter. No mass effect. Cerebral ventricles: No ventriculomegaly. Paranasal sinuses: Visualized sinuses are unremarkable. No fluid levels. Mastoid air cells: Visualized mastoid air cells are well aerated. Bones/joints: Unremarkable. No acute fracture. Soft tissues: Unremarkable. CT/CT head wo con* [id number] IMPRESSION: No acute intracranial abnormality.
--- NOTE | 2021-12-15 19:01 | ED_ITS ---
HPI - Headache General: Chief Complaint: Headache Stated Complaint: Laverne sent by Pietro Haddad Time Seen by Provider: 12/15/21 18:51 History of Present Illness: Patient is a 31-year-old female comes to the ED with migraine headache. Symptoms started around noon today. Patient does not have a history of migraine headaches and says this is the first time she has had a headache like this. Headaches located on the right side of her head and describes as a constant pain with some sharp episodic flareups of worsening pain. Denies any head trauma preceding symptoms. Endorses aura at the start of headache. Lights and loud noises make headache worse. Endorses feeling nauseous but has not had any episodes of emesis. She endorses having an episode where she had some numbness and tingling in part of her left hand for few minutes, but that has since resolved. She thinks that the numbness in her hand was likely related to how she was positioning her arm at the time. Denies any other weakness or numbness/tingling to face or extremities. Denies any chance of currently being . Associated symptoms: Reports nausea; Deny chest pain, fever(s), rash or vomiting Review of Systems Const: Denies: fever(s), chills or fatigue Eyes: Reports: photophobia; Denies: change in vision or eye discomfort ENMT: Denies: throat pain, odynophagia, nasal discharge or nasal congestion Card: Denies: chest pain, palpitations, edema, swelling of feet/ankles, dyspnea on exertion or orthopnea Resp: Denies: dyspnea, productive cough or non-productive cough GI: Reports: nausea; Denies: abdominal pain, vomiting, diarrhea, constipation or hematochezia : Denies: flank pain, dysuria or hematuria Musc: Denies: neck pain, back pain or extremity swelling Skin/Breast: Denies: rash or new lesions Neuro: Reports: headache(s); Denies: numbness in extremities or weakness in extremities PFS ED PFSH: Medical History No pertinent past medical history Surgical History No pertinent past surgical history Female Reproductive History: Date of last menstrual period: 12/15/21 Physical Exam Const: COMMON NORMALS: no acute distress, patient oriented x3 and alert GENERAL APPEARANCE: cooperative OTHER: Patient is sitting comfortably on exam chair when in the room and she is wearing sunglasses. HENMT: COMMON NORMALS: normocephalic HEAD & SCALP: normocephalic MOUTH: Normal oral and palatal mucosa present THROAT: posterior oropharynx normal and uvula midline Eye: COMMON NORMALS: Equal, round and reactive pupils present and EOMs intact bilaterally GENERAL EYE: appearance normal, both eyes and all related structures PUPIL: Yes Equal, round and reactive pupils present Neck/C-Spine: COMMON NORMALS: supple GENERAL: Yes normal visual inspection Lymph: LYMPHATIC: no lymphadenopathy noted Resp: COMMON NORMALS: normal respiratory effort, No retractions, No use of accessory muscles and clear to auscultation bilaterally AUSCULTATION: clear to auscultation bilaterally Cardio: COMMON NORMALS: regular rate, regular rhythm, S1 normal heart sound present, S2 normal heart sound present, No gallops present (Cardio), No clicks present (Cardio), No murmurs present (Cardio) and Peripheral pulses 2+ throughout RATE: regular rate RHYTHM: regular rhythm HEART SOUNDS: S1 normal heart sound present and S2 normal heart sound present PERIPHERAL PULSES: Peripheral pulses 2+ throughout GI: COMMON NORMALS: Normal to inspection, nondistended, normoactive bowel sounds present, Soft to palpation, non-tender and no masses PALPATION: Yes Soft to palpation : COMMON NORMALS: Yes no CVA tenderness BLADDER/KIDNEY EXAM: Yes no CVA tenderness Back/Pelvis: COMMON NORMALS: no CVA tenderness Extremity: GENERAL: Yes normal exam except as noted Neuro: COMMON NORMALS: patient oriented x3, CN's II-XII intact bilaterally, moves all extremities, no focal motor deficits and no sensory deficits noted SENSORIUM/ORIENTATION: Yes alert COORDINATION/BALANCE: [id number] test normal SPEECH: speech normal GAIT: Yes Normal gait present SENSORY EXAM: Yes extremities (intact) MOTOR EXAM: 5/5 motor strength present throughout COORDINATION: [id number]-da-afid test normal Skin: COMMON NORMALS: no rashes or lesions noted GENERAL SKIN EXAM: no rash es or lesions noted and dry skin Course Vital Signs: Vital signs: Vital Signs Temperature 98.3 F 12/15/21 17:15 Pulse Rate 91 12/15/21 17:15 Respiratory Rate 18 12/15/21 17:15 Blood Pressure 142/90 12/15/21 17:15 Pulse Oximetry 95 12/15/21 17:15 Oxygen Delivery Me thod 12/15/21 17:15 MDM - Headache Medical Decision Making Patient is a 31-year-old female comes to the ED with migraine type headache. Patient has never had a migraine before and this is the first time she has ever had a headache like this. She endorses photophobia, nausea. Describes aura with onset of headache. Denies any vision changes or neurological symptoms. Vitals are stable. Neuro exam is benign. Rest of her exam is benign. CT of head showed no acute findings. Patient was given IV migraine cocktail of Toradol, Benadryl, Decadron and Reglan and her symptoms improved. She was diagnosed with a migraine headache and was stable for discharge home. Told to follow-up with PCP in the next week for reevaluation. Return to ED precautions given. Patient understood and agreed with plan. Lab Data Radiology Impressions Head CT 12/15/21 18:52 IMPRESSION: No acute intracranial abnormality. Discharge Plan Discharge Patient Disposition: Home Clinical Impression: Migraine Qualifiers: Migraine type: with aura Status migrainosus presence: without status migrainosus Intractability: not intractable Qualified Code(s): G43.109 - Migraine with aura, not intractable, without status migrainosus Condition: Stable Prescriptions: No Action prednisone 50 mg tablet 50 mg PO DAILY Qty: 5 0RF albuterol sulfate 90 mcg/actuation HFA aerosol inhaler 2 inh INHALATION Q6H PRN (Reason: shortness of breath or wheezing) Qty: 8 0RF amlodipine 10 mg tablet 10 mg PO DAILY Qty: 30 0RF lisinopril 20 mg tablet 20 mg PO DAILY Qty: 30 0RF Discharge Orders: Discharge ED (Routine); Ordered 12/15/21 Ordered By: Arturo Shane Referrals: Sean Paula MD [Primary Care Provider] - Discharge Diet: Regular Discharge Activity: Increase activity as tolerated Patient Instructions: Headache - Migraine (Adult) Activity Restrictions/Additional Instructions: Follow-up with medical provider as directed in the next 7 to 10 days for reevaluation. Continue taking all home medications as prescribed. Return to the ER or your medical provider if condition worsens. Please read and understand discharge instructions. Thank you for choosing [facility] for your healthcare needs today. Please realize this is an emergency room and that we are providing you with a medical screening exam and this may not be complete and all inclusive of all the testing and or work up that you may need to determine your ailment or severity of your illness. It is very important that you follow up as instructed or that you return to the Emergency Department should you have concerns or if your condition changes or worsens in any way. Coding Level of Care Code ED Screener And Blender Operator for Bryant Montero Exam Comprehensive
[2021-12-15] MEDS: dexamethasone 10 mg/mL INJ IVP (19:43)
[2021-12-15] MEDS: metoclopramide 5 mg/mL SDV 2 mL 10 MG IVP (19:43)
[2021-12-15] MEDS: ketorolac 30 mg/mL INJ IVP (19:43)
[2021-12-15] MEDS: diphenhydrAMINE 50 mg/mL SDV 1mL 25 MG IVP (19:43)
[2021-12-15] MEDS: sodium chloride 0.9% 500 ML 999 ML IV (19:44)
== END 2021-12-15 20:45 | disposition home or self-care (01) ==
PROVIDERS: Emergency Provider Physician Assistant; PCP Family Medicine
DX: G43.109 Migraine with aura, not intractable, without status migrainosus (principal)
CPT/HCPCS: 70450; 96361; 96374; 96375; 99285; J1100; J1200; J1885; J2765; J7040

== ENCOUNTER 2023-05-06 18:43 | Inpatient (IN) | payer OTHER, SELFPAY ==
[2023-05-06 18:45] VITALS: BP 164/106; PULSE 125; RESP 20; TEMP 36.6; O2SAT 94
[2023-05-06 19:14] LABS: Basophils % 0.2 %; Eosinophils # 0.1 10^3/uL (0.0-0.8); Eosinophils % 0.7 %; Hematocrit 39.6 % (36-47); Lymphocytes # 2.3 10^3/uL (0.8-4.8); Lymphocytes % 27.1 %; Mean Corpuscular HGB Conc 33.8 g/dL (30-55); Mean Corpuscular Hemoglobin 32.4 pg (27-33); Mean Corpuscular Volume 95.7 fl (85-98); Mean Platelet Volume 9.2 fL (7.4-10.4); Monocytes # 0.3 10^3/uL (0.2-0.9); Monocytes % 3.4 %; Neutrophils # 5.84 10^3/uL (1.8-7.7); Neutrophils % 68.2 %; Nucleated Red Blood Cells % 0 %; Platelet Count 228 10^3/cmm (157-399); Red Blood Count 4.14 10^6/uL (3.85-5.65); Red Cell Distribution Width 12.5 % (12.1-15.1); White Blood Count 8.56 10^3/uL (3.29-11.43)
--- NOTE | 2023-05-06 19:14 | ED.C_ITS ---
Documented by User: SHANA Noel 05/06/23 22:11 HPI - Psych 2 General: Chief Complaint: Psychiatric Symptoms Stated Complaint: SI, etoh Time Seen by Provider: 05/06/23 18:44 Source: patient and other (security) Mode of arrival: ambulatory Limitations: no limitations History of Present Illness: Patient is a 32-year-old female brought into the emergency department by security for evaluation of suicidal ideations and intoxication. school resource officer states he was contacted regarding a patient on the property grounds that was intoxicated. Upon his arrival patient made suicidal statements stating she was going to walk out in front of traffic. She was reportedly with her at the time. Report is that patient is currently . Review of previous documentation shows an ultrasound just performed 2 days ago that showed a live intrauterine gestation estimated at approximately 22 weeks. She is clinically intoxicated upon arrival. She tells myself that she is suicidal. She is belligerent and demanding to leave/go home. MD complaint: suicidal ideation Treatments prior to arrival: none If self harm: admits thoughts of self harm Review of Systems 2 General: Reports: ROS unobtainable due to medical condition (pt acutely intoxicated) [facility] ED 2 PFSH: Medical History (Updated 05/06/23 @ 22:11 by SHANA Noel) No pertinent past medical history Surgical History No pertinent past surgical history Physical Exam 2 Const: EXAM LIMITATIONS: altered mental status (acutely intoxicated) O RIENTATION/CONSCIOUSNESS: Yes awake, Yes oriented to person and Yes oriented to place HENMT: COMMON NORMALS: normocephalic and atraumatic HEAD & SCALP: n ormocephalic and atraumatic Resp: COMMON NORMALS: normal respiratory effort Cardio: COMMON NORMALS: regular rhythm RATE: tachycardic RHYTHM: regular rhythm GI: INSPECTION: Yes gravid abdomen Neuro: SENSORIUM/ORIENTATION: Yes oriented to person and Yes oriented to place Psych: APPEARANCE: Yes unkempt and Yes disheveled ATTITUDE: Yes uncooperative, Yes Belligerent attititude/behavior present and Yes agitated A CTIVITY/MOTOR BEHAVIOR: Yes appropriate eye contact SPEECH: Yes slurred M OOD & AFFECT: Yes irritable ATTENTION/CONCENTRATION: Yes attention grossly impaired and Yes concentration grossly impaired INSIGHT: Limited insight present (Psych) JUDGEMENT: Limited judgement present (Psych) Course 2 ED course: Patient's behaviors were continuing to escalate. Dr. David eventually got involved in patient's care and chemical and physical restraints were ordered. Please see his note in regards to these orders. Patient care will be transferred to him at this time. ES Vital Signs: Vital signs: Vital Signs Temperature 97.8 F 05/06/23 18:45 Pulse Rate 111 H 05/06/23 20:28 Respiratory Rate 22 H 05/06/23 20:28 Blood Pressure 115/78 05/06/23 21:42 Pulse Oximetry 97 05/06/23 20:28 Oxygen Delivery Me thod Room Air 05/06/23 20:28 MDM - Psych Lab Data 05/06/23 19:07 05/06/23 19:07 Laboratory Results WBC 8.56 10^3/uL (3.29-11.43) 05/06/23 19:07 RBC 4.14 10^6/uL (3.85-5.65) 05/06/23 19:07 Hgb 13.40 g/dL (11.27-16.99) 05/06/23 19:07 Hct 39.6 % (36-47) 05/06/23 19:07 MCV 95.7 fl (85-98) 05/06/23 19:07 MCH 32.4 pg (27-33) 05/06/23 19:07 MCHC 33.8 g/dL (30-55) 05/06/23 19:07 RDW 12.5 % (12.1-15.1) 05/06/23 19:07 Plt Count 228 10^3/cmm (157-399) 05/06/23 19:07 MPV 9.2 fL (7.4-10.4) 05/06/23 19:07 Neut % (Auto) 68.2 % 05/06/23 19:07 Lymph % (Auto) 27.1 % 05/06/23 19:07 Hayes % (Auto) 3.4 % 05/06/23 19:07 Eos % (Auto) 0.7 % 05/06/23 19:07 Baso % (Auto) 0.2 % 05/06/23 19:07 Neut # (Auto) 5.84 10^3/uL (1.8-7.7) 05/06/23 19:07 Lymph # (Auto) 2.3 10^3/uL (0.8-4.8) 05/06/23 19:07 Hayes # (Auto) 0.3 10^3/uL (0.2-0.9) 05/06/23 19:07 Eos # (Auto) 0.1 10^3/uL (0.0-0.8) 05/06/23 19:07 Baso # (Auto) 0.0 10^3/uL (0.0-0.1) 05/06/23 19:07 Nucleated RBC % (auto) 0 % 05/06/23 19:07 Nucleated RBCs # 0.0 /100WBC 05/06/23 19:07 Sodium 138 mmol/L (136-145) 05/06/23 19:07 Potassium 3.6 mmol/L (3.5-5.1) 05/06/23 19:07 Chloride 104 mmol/L (98-107) 05/06/23 19:07 Carbon Dioxide 18 mmol/L (22-29) L 05/06/23 19:07 Anion Gap 19.6 (5-19) H 05/06/23 19:07 BUN 9 mg/dL (6-20) 05/06/23 19:07 Creatinine 0.4 mg/dL (0.5-0.9) L 05/06/23 19:07 GFR Calculation 182.7 mL/min (90-130) H 05/06/23 19:07 Glucose 107 mg/dL (65-115) 05/06/23 19:07 Calculated Osmolality 285 mOsm/kg (285-295) 05/06/23 19:07 Calcium 9.1 mg/dL (8.5-10.5) 05/06/23 19:07 Total Bilirubin 0.2 mg/dL (0.15-1.2) 05/06/23 19:07 AST 14 U/L (0-32) 05/06/23 19:07 ALT 12 U/L (0-33) 05/06/23 19:07 Alkaline Phosphatase 91 U/L (35-105) 05/06/23 19:07 Total Protein 7.2 g/dL (6.6-8.7) 05/06/23 19:07 Albumin 3.8 g/dL (3.5-5.2) 05/06/23 19:07 Globulin 3.4 g/dL (1.3-4.6) 05/06/23 19:07 Salicylates < 0.3 mg/dL (3-10) L 05/06/23 19:07 Acetaminophen < 5.0 ug/mL (10-30) L 05/06/23 19:07 Ethyl Alcohol 256 mg/dL (0-10) H 05/06/23 21:24 Discharge Plan Discharge Patient Disposition: Admitted As Inpatient Clinical Impression: Suicidal ideation, Alcohol intoxication, 22 weeks gestation of , Involuntary commitment Condition: Stable Coding Level of Care Code ED Home Health Registered Nurse for Chg Fwd Documented by User: David David DO 05/06/23 21:23 HPI - Psych 2 General: Chief Complaint: Psychiatric Symptoms Stated Complaint: SI, etoh Time Seen by Provider: 05/06/23 18:44 [facility] ED 2 PFSH: Medical History (Updated 05/06/23 @ 22:11 by SHANA Noel) No pertinent past medical history Surgical History No pertinent past surgical history Course 2 Vital Signs: Vital signs: Vital Signs Temperature 97.8 F 05/06/23 18:45 Pulse Rate 111 H 05/06/23 20:28 Respiratory Rate 22 H 05/06/23 20:28 Blood Pressure 115/78 05/06/23 21:42 Pulse Oximetry 97 05/06/23 20:28 Oxygen Delivery Me thod Room Air 05/06/23 20:28 MDM - Psych Medical Decision Making Patient presents to the ER with suicidal ideation, ethanol intoxication, and . Patient became violent and agitated to the point of eventually being put in 4-point restraints and giving 50 of Benadryl and 2 of Ativan. Patient then calm down. Patient was cleared from medical standpoint. Patient's alcohol is 320. Will be rechecked. Dr. Granado was consulted who agreed to take the patient inpatient for further evaluation and treatment. Lab Data 05/06/23 19:07 05/06/23 19:07 Laboratory Results WBC 8.56 10^3/uL (3.29-11.43) 05/06/23 19:07 RBC 4.14 10^6/uL (3.85-5.65) 05/06/23 19:07 Hgb 13.40 g/dL (11.27-16.99) 05/06/23 19:07 Hct 39.6 % (36-47) 05/06/23 19:07 MCV 95.7 fl (85-98) 05/06/23 19:07 MCH 32.4 pg (27-33) 05/06/23 19:07 MCHC 33.8 g/dL (30-55) 05/06/23 19:07 RDW 12.5 % (12.1-15.1) 05/06/23 19:07 Plt Count 228 10^3/cmm (157-399) 05/06/23 19:07 MPV 9.2 fL (7.4-10.4) 05/06/23 19:07 Neut % (Auto) 68.2 % 05/06/23 19:07 Lymph % (Auto) 27.1 % 05/06/23 19:07 Hayes % (Auto) 3.4 % 05/06/23 19:07 Eos % (Auto) 0.7 % 05/06/23 19:07 Baso % (Auto) 0.2 % 05/06/23 19:07 Neut # (Auto) 5.84 10^3/uL (1.8-7.7) 05/06/23 19:07 Lymph # (Auto) 2.3 10^3/uL (0.8-4.8) 05/06/23 19:07 Hayes # (Auto) 0.3 10^3/uL (0.2-0.9) 05/06/23 19:07 Eos # (Auto) 0.1 10^3/uL (0.0-0.8) 05/06/23 19:07 Baso # (Auto) 0.0 10^3/uL (0.0-0.1) 05/06/23 19:07 Nucleated RBC % (auto) 0 % 05/06/23 19:07 Nucleated RBCs # 0.0 /100WBC 05/06/23 19:07 Sodium 138 mmol/L (136-145) 05/06/23 19:07 Potassium 3.6 mmol/L (3.5-5.1) 05/06/23 19:07 Chloride 104 mmol/L (98-107) 05/06/23 19:07 Carbon Dioxide 18 mmol/L (22-29) L 05/06/23 19:07 Anion Gap 19.6 (5-19) H 05/06/23 19:07 BUN 9 mg/dL (6-20) 05/06/23 19:07 Creatinine 0.4 mg/dL (0.5-0.9) L 05/06/23 19:07 GFR Calculation 182.7 mL/min (90-130) H 05/06/23 19:07 Glucose 107 mg/dL (65-115) 05/06/23 19:07 Calculated Osmolality 285 mOsm/kg (285-295) 05/06/23 19:07 Calcium 9.1 mg/dL (8.5-10.5) 05/06/23 19:07 Total Bilirubin 0.2 mg/dL (0.15-1.2) 05/06/23 19:07 AST 14 U/L (0-32) 05/06/23 19:07 ALT 12 U/L (0-33) 05/06/23 19:07 Alkaline Phosphatase 91 U/L (35-105) 05/06/23 19:07 Total Protein 7.2 g/dL (6.6-8.7) 05/06/23 19:07 Albumin 3.8 g/dL (3.5-5.2) 05/06/23 19:07 Globulin 3.4 g/dL (1.3-4.6) 05/06/23 19:07 Salicylates < 0.3 mg/dL (3-10) L 05/06/23 19:07 Acetaminophen < 5.0 ug/mL (10-30) L 05/06/23 19:07 Ethyl Alcohol 256 mg/dL (0-10) H 05/06/23 21:24 All radiology interpretation(s) finalized by discharge Discharge Plan Discharge Patient Disposition: Admitted As Inpatient Clinical Impression: Suicidal ideation, Alcohol intoxication, 22 weeks gestation of , Involuntary commitment Condition: Stable Coding Level of Care Code ED Home Health Registered Nurse for Bryant Montero
[2023-05-06 19:30] LABS: Alanine Aminotransferase 12 U/L (0-33); Albumin Level 3.8 g/dL (3.5-5.2); Alkaline Phosphatase 91 U/L (35-105); Blood Urea Nitrogen 9 mg/dL (6-20); Calcium 9.1 mg/dL (8.5-10.5); Carbon Dioxide 18 mmol/L (22-29); Chloride 104 mmol/L (98-107); Globulin 3.4 g/dL (1.3-4.6); Glomerular Filtration Rate 182.7 mL/min (90-130); Glucose 107 mg/dL (65-115); Osmolality Calculated 285 mOsm/kg (285-295); Sodium 138 mmol/L (136-145); Total Bilirubin 0.2 mg/dL (0.15-1.2); Total Protein 7.2 g/dL (6.6-8.7)
[2023-05-06 19:36] LABS: Acetaminophen < 5.0 ug/mL (10-30); Salicylate < 0.3 mg/dL (3-10)
[2023-05-06 19:37] LABS: Anion Gap 19.6 (5-19); Aspartate Amino Transferase 14 U/L (0-32); Potassium 3.6 mmol/L (3.5-5.1)
[2023-05-06 19:38] LABS: Alcohol Level 320 mg/dL (0-10)
--- NOTE | 2023-05-06 19:59 | PC.NURSE ---
this nurse observed pt in room 9 yelling at staff and refusing to go back into room. when this nurse, security, and x2 other nurses approached pt she states you can pay my phone bill, I am not doing it anymore. I will go outside, I will walk in the road, my is okay with it. pt then attempted to go outside to decon room and security attempted to re-direct pt to room 9. pt then became hands-on with staff. pt grabbed this nurse's arm and would not let go. this nurse, another ED nurse, security assisted pt to bed in room 9. pt still being combative. pt placed on restraint bed, four-point restraints applied @1955. ED charge, ED physician, and security aware at 1957. this nurse informed primary nurse at 1958.
[2023-05-06] MEDS: diphenhydrAMINE 50 mg/mL SDV 1mL IM (20:10)
--- NOTE | 2023-05-06 20:14 | PC.NURSE ---
96 Hour Involuntary Hold Patient Rights have been read to patient and a copy of the same has been given to her. pharmacist in charge owner Nurse, Melissa Hauser and Oval [employer] Circular Glass Cutter Amberly Nova was present at bedside at the time of presentation of rights.
[2023-05-06 20:28] VITALS: BP 170/107; PULSE 111; RESP 22; O2SAT 97
[2023-05-06] MEDS: LORazepam 2 mg/mL INJ 10 mL MDV IM (20:39)
[2023-05-06 21:42] VITALS: BP 115/78
[2023-05-06 21:49] LABS: Alcohol Level 256 mg/dL (0-10)
[2023-05-06 22:15] VITALS: PULSE 96; RESP 16; O2SAT 94
[2023-05-07 06:00] VITALS: BP 112/70; PULSE 101; RESP 18; TEMP 36.8; O2SAT 96
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
[2023-05-07] MEDS: thiamine 100 mg Tablet PO (09:20)
[2023-05-07] MEDS: folic acid 1 mg Tablet PO (09:20)
[2023-05-07] MEDS: multivitamin therapeutic Tablet 1 TAB PO (09:20)
[2023-05-07 14:00] VITALS: RESP 18
[2023-05-07] MEDS: amlodipine 10 mg Tablet PO (14:38)
[2023-05-07] MEDS: PARoxetine 20 mg Tablet PO (14:38)
[2023-05-07] MEDS: levothyroxine 75 mcg Tablet PO (14:38)
[2023-05-07 19:45] VITALS: BP 125/86; PULSE 72; RESP 16; TEMP 36.7; O2SAT 97
[2023-05-08 06:00] VITALS: BP 145/87; PULSE 67; RESP 16; TEMP 36.9; O2SAT 97
[2023-05-08] MEDS: thiamine 100 mg Tablet PO (09:00)
[2023-05-08] MEDS: multivitamin therapeutic Tablet 1 TAB PO (09:00)
[2023-05-08] MEDS: levothyroxine 75 mcg Tablet PO (09:01)
[2023-05-08] MEDS: folic acid 1 mg Tablet PO (09:01)
[2023-05-08] MEDS: PARoxetine 20 mg Tablet PO (09:01)
[2023-05-08] MEDS: amlodipine 10 mg Tablet PO (09:01)
[2023-05-08 13:08] VITALS: BP 133/74; PULSE 77; RESP 16; TEMP 36.8; O2SAT 97
--- NOTE | 2023-05-08 17:24 | P.NPUPN_ITS ---
Subjective NPU 2 Subjective: 32-year-old female admitted intoxicated with suicidal ideation while currently 22 weeks . Patient had reported no prior history of depression. She reported that she had been going through a significant stressor over the past few weeks. She had reported that she did not have any thoughts of hurting herself. She had minimized any significant history of drinking excessively. She reported no history of withdrawal symptoms from alcohol. She had reported no feelings of hopelessness. She had reported a past history of depression in the past. She had reported that she had only recently found out that she was . Mental Status Exam 2 MSE Comments: This is a overweight white female in hospital scrubs with adequate grooming and eye contact. No abnormal movements except for mild psychomotor retardation. She was cooperative with exam in mild distress. Speech was normal in rate rhythm and volume today. Mood described okay. Affect was restricted in range and mood incongruent.. Thought process was linear and organized. Thought content: Patient denied active suicidal or homicidal ideation. There was no evidence of delusions and she denied auditory or visual hallucinations. Attention and concentration were intact and memory was mostly reliable but none were formally tested. She is alert and oriented x 3. Insight was poor and judgment was limited. Impulse control is impaired. Vitals/I&O/Wt Last Vital Signs Temp 98.2 F 05/08/23 13:08 Pulse 77 05/08/23 13:08 Resp 16 05/08/23 13:08 BP 133/74 05/08/23 13:08 Pulse Ox 97 05/08/23 13:08 O2 Del Method Room Air 05/07/23 06:00 Weight last 48 hrs Weight 55.157 kg Data NPU 05/06/23 19:07 05/06/23 19:07 A&P Assessment and plan (1) Suicidal ideation: (2) Alcohol intoxication: Qualifiers: Complication of substance-induced condition: uncomplicated Qualified Code(s): F10.920 - Alcohol use, unspecified with intoxication, uncomplicated (3) Major depressive disorder: (4) 22 weeks gestation of : (5) Marital/partner relational problem: (6) Anxiety: Plan This is a 32-year-old white female who presents 22 weeks and intoxicated to the emergency department as she is dealing with depression and anxiety She has been drinking alcohol and is not taking her prescribed medication consistently. She has been dealing with issues since her teenage years. 1. Continue Paxil 20 mg p.o. daily 2. Continue every 15 minute checks for safety. 3. Encourage individual, group and milieu therapy. 4. Encourage sober living treatment after discharge at the highest level care to which she is willing to commit. 5. Continue CIWA protocol. 6. Consult OB for appropriate monitoring. Involuntary Hold Information 2 96 Hour Hold: 96 Hour Involuntary Admission: Yes Attestations NPU 2 Medical Necessity Statement*: Inpatient hospitalization is medically necessary and the clinically appropriate intervention at this time. We will monitor/initiate medications and make changes as indicated. Her likely length of stay is 2-3 days. Coding Level of Care Code Acute Code for [facility] Fwd Diagnoses Suicidal ideation R45.851 Alcohol intoxication F10.920 Complication of substance-induced condition: uncomplicated Major depressive disorder F32.9 22 weeks gestation of Z3A.22 Marital/partner relational problem Z63.0 Anxiety F41.9
[2023-05-08 20:06] VITALS: BP 144/87; PULSE 93; RESP 18; TEMP 36.8; O2SAT 97
[2023-05-09 05:58] VITALS: BP 133/91; PULSE 63; RESP 18; TEMP 36.8; O2SAT 95
[2023-05-09] MEDS: PARoxetine 20 mg Tablet PO (08:51)
[2023-05-09] MEDS: multivitamin therapeutic Tablet 1 TAB PO (08:51)
[2023-05-09] MEDS: amlodipine 10 mg Tablet PO (08:51)
[2023-05-09] MEDS: levothyroxine 75 mcg Tablet PO (08:51)
[2023-05-09] MEDS: folic acid 1 mg Tablet PO (08:51)
[2023-05-09] MEDS: thiamine 100 mg Tablet PO (08:51)
[2023-05-09 16:22] VITALS: BP 133/91; PULSE 63; RESP 18; TEMP 36.8; O2SAT 95
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
== END 2023-05-09 17:09 | disposition home or self-care (01) | DRG 880 ==
LOC: ER 21:21 → NP 22:13
PROVIDERS: Emergency Medicine; Admitting Provider Psychiatry & Neurology Psychiatry; Emergency Provider Physician Assistant; PCP Family Medicine; Visit Provider Psychiatry & Neurology Psychiatry
DX: F41.8 Other specified anxiety disorders (principal); R45.851 Suicidal ideations; F10.129 Alcohol abuse with intoxication, unspecified; Y90.8 Blood alcohol level of 240 mg/100 ml or more; Z72.0 Tobacco use; Z62.810 Personal history of physical and sexual abuse in childhood; Z91.410 Personal history of adult physical and sexual abuse; Z63.0 Problems in relationship with spouse or partner; Z3A.22 22 weeks gestation of pregnancy
CPT/HCPCS: 36415; 80053; 80307; 85025; 96372; 97150; 97165; 99285; J1200; J2060; J3411

== ENCOUNTER 2023-08-29 05:25 | Inpatient (IN) | payer OTHER, SELFPAY ==
--- NOTE | 2023-08-17 08:55 | ANES.PREANE2 ---
Pre-Anesthetic Assessment Height/Weight: Height 1.55 m Operation Date: 08/29/23 07:20 Proposed Procedures p Section Repeat With Tubal 67705, Z34.83(Bilateral) - Duke Hess MD Familial anesthetic complications: none Was Beta Shahnaz taken within 24 hours: N/A Was Clonidine taken within 24 hours: N/A Social Alcohol and Tobacco Exam alert, oriented x 3, clear to auscultation bilaterally and regular rate & rhythm Pulmonary Asthma (seasonal) Anesthetic Plan ASA status: 2 Anesthesia: Regional (specify below) Risk of > 500 ml blood loss (7ml/kg in children): Yes, adequate IV access and fluids planned Medications/Allergies Home Medications Medication Instructions Recorded Confirmed Last Taken Type albuterol sulfate 90 mcg/actuation 2 inh inhalation Q6H PRN shortness 03/17/21 06/21/23 Unknown Rx aerosol inhaler of breath or wheezing #8 grams labetalol 100 mg tablet 100 mg PO DAILY 05/07/23 06/21/23 Unknown History levothyroxine 75 mcg tablet 75 mcg PO DAILY 05/07/23 06/21/23 Unknown History paroxetine HCl 10 mg tablet (Paxil) 10 mg PO .HS 30 days #30 tabs 06/21/23 06/21/23 Unknown Rx Allergies Allergy/AdvReac Type Severity Reaction Status Date / Time No Known Allergies Allergy Verified 06/21/23 09:21 PFS Anesthesia Medical History (Updated 06/11/23 @ 00:02 by RAYMUNDO Mathew) PTSD (post-traumatic stress disorder) Nicotine use disorder Alcohol use disorder, mild, in early remission Moderate episode of recurrent major depressive disorder Psychiatric care No pertinent past medical history Surgical History (Updated 06/11/23 @ 00:02 by RAYMUNDO Mathew) No pertinent past surgical history Social History Smoking and tobacco/nicotine status: current every day tobacco/nicotine user Data Anesthesia Cardiac Studies: Sestamibi Stress Test (Cardiology) 06/22/21
[2023-08-29] VITALS (75 sets, daily range): BP systolic 111–154; BP diastolic 56–101; PULSE 54–87; RESP 16–18; TEMP 36.2–36.8; O2SAT 88–100; BMI 24.1
[2023-08-29] MEDS: lactated ringers 1,000 ML 999 ML IV (06:01)
[2023-08-29 06:15] LABS: Basophils % 0.2 %; Eosinophils # 0.2 10^3/uL (0.0-0.8); Eosinophils % 2.1 %; Lymphocytes # 2.1 10^3/uL (0.8-4.8); Lymphocytes % 25.2 %; Mean Corpuscular HGB Conc 34.1 g/dL (30-55); Mean Corpuscular Hemoglobin 31.1 pg (27-33); Mean Corpuscular Volume 91.4 fl (85-98); Mean Platelet Volume 9.4 fL (7.4-10.4); Monocytes # 0.4 10^3/uL (0.2-0.9); Monocytes % 5.4 %; Neutrophils # 5.45 10^3/uL (1.8-7.7); Neutrophils % 66.6 %; Nucleated Red Blood Cells % 0 %; Platelet Count 191 10^3/cmm (157-399); Red Blood Count 4.05 10^6/uL (3.85-5.65); White Blood Count 8.18 10^3/uL (3.29-11.43)
--- NOTE | 2023-08-29 06:48 | P.HP_ITS ---
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 Her has been relatively unremarkable. She began care a little late because she did not know she was . Otherwise there were no significant concerns. Her blood type is B+. Her antibody screen is negative. She passed her glucose screen. She is rubella immune. And she is GBS negative. The remainder of her infectious disease profile is within normal limits. Present Details : 5 Para: 4 Labs Rubella: Immune RPR: Negative GBS: Negative Review of Systems 2 General: Reports: 10 or more systems reviewed and unremarkable except in HPI and below Const: Reports: fatigue; Denies: fever(s) Eyes: Denies: change in vision Card: Denies: chest pain Musc: Reports: back pain Supa/Lymph: Denies: easy bruising Medications/Allergies Home Medications Medication Instructions Recorded Confirmed Last Taken Type albuterol sulfate 90 mcg/actuation 2 inh inhalation Q6H PRN shortness 03/17/21 08/29/23 Unknown Rx aerosol inhaler of breath or wheezing #8 grams labetalol 100 mg tablet 100 mg PO DAILY 05/07/23 08/29/23 08/28/23 History levothyroxine 75 mcg tablet 75 mcg PO DAILY 05/07/23 08/29/23 08/28/23 History paroxetine HCl 10 mg tablet (Paxil) 10 mg PO .HS 30 days #30 tabs 06/21/23 08/29/23 2 Weeks Ago Rx ~08/15/23 Allergies Allergy/AdvReac Type Severity Reaction Status Date / Time No Known Allergies Allergy Verified 08/29/23 06:13 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: Medical History PTSD (post-traumatic stress disorder) Nicotine use disorder Alcohol use disorder, mild, in early remission Moderate episode of recurrent major depressive disorder Psychiatric care No pertinent past medical history Surgical History No pertinent past surgical history Social History Smoking and tobacco/nicotine status: current every day tobacco/nicotine user Vitals/I&O/Wt Last Vital Signs Pulse 71 08/29/23 06:21 BP 140/91 08/29/23 06:21 O2 Del Method Room Air 08/29/23 05:34 Weight last 48 hrs Weight 128 lb Weight 128 lb Physical Exam 2 Const: COMMON NORMALS: patient oriented x3 and alert HENMT: COMMON NORMALS: moist oral mucous membranes HEAD & SCALP: normal to inspection Chest: COMMONS NORMALS: normal inspection of the chest Resp: COMMON NORMALS: clear to auscultation bilaterally AUSCULTATION: clear to auscultation bilaterally Cardio: COMMON NORMALS: regular rate and regular rhythm RATE: regular rate RHYTHM: regular rhythm GI: INSPECTION: Yes normal to inspection and Yes other (Gravid) Extremity: COMMON NORMALS: normal to inspection GENERAL: Yes edema (Trace) Neuro: COMMON NORMALS: patient oriented x3, moves all extremities and no sensory deficits noted SENSORIUM/ORIENTATION: Yes alert Psych: COMMON NORMALS: mental status grossly normal Skin: COMMON NORMALS: no rashes or lesions noted GENERAL SKIN EXAM: no rashes or lesions noted Data 08/29/23 06:00 Results Labs OB ([facility]): 2 Obstetrics 07/18/23 Blood Type Pending 08/29/23 Antibody Screen Pending 08/29/23 Hct 37.0 % (36-47) 08/29/23 Hgb 12.60 g/dL (11.27-16.99) 08/29/23 Rho(D) Type Pending 08/29/23 Plt Count 191 10^3/cmm (157-399) 08/29/23 HCG, Qual Negative (Negative) 03/17/21 Urine Opiates Screen Negative ng/mL (Negative) 03/27/21 Ur Barbiturates Screen Negative ng/mL (Negative) 03/27/21 Ur Phencyclidine Scrn Negative ng/mL (Negative) 03/27/21 Ur Amphetamines Screen Negative ng/mL (Negative) 03/27/21 U Benzodiazepines Scrn Negative ng/mL (Negative) 03/27/21 Urine Cocaine Screen Negative ng/mL (Negative) 03/27/21 U Marijuana (THC) Screen Negative ng/mL (Negative) 03/27/21 A&P Assessment and plan (1) 39 weeks gestation of : (2) History of : We discussed the risks of a clued the risks of bleeding, infection, and damage to intra-abdominal organs. She and her had no further questions and wished to proceed. (3) Encounter for sterilization: We discussed the risks of a tubal ligation. We also discussed a 1 200 chance of a despite a successful tubal ligation. We also discussed the increased risk of a tubal . Finally I also discussed with them the possibility that if there is a lot of scar tissue that we may hold off on a tubal ligation as well. There are no further questions. Attestations 2 Medical Necessity Statement*: I anticipate routine and post care Coding Level of Care Code Acute Code for Chg Fwd Diagnoses 39 weeks gestation of Z3A.39 History of Z98.891 Encounter for sterilization Z30.2
[2023-08-29] MEDS: famotidine 20 mg/2 mL INJ IVP (06:50)
[2023-08-29] MEDS: citric acid-sodium citrate 30 mL UDC PO (06:50)
[2023-08-29] MEDS: metoclopramide 5 mg/mL SDV 2 mL 10 MG IVP (06:51)
--- NOTE | 2023-08-29 06:52 | ANES.PAUD2 ---
Pre-Anesthetic Update Pre-Anesthetic Assessment: Date of Surgery/Procedure: 08/29/23 Proposed Procedure: Operation Date: 08/29/23 07:20 Proposed Procedures p Section Repeat With Tubal 21604, Z34.83(Bilateral) - Duke Hess MD Any changes to Pre-Anesthetic Assessment?: No Last Intake: Intake Last Liquid Date 08/28/23 Last Liquid Time 22:00 Last Solid Date 08/28/23 Last Solid Time 22:00 Labs Last 48hrs: Short CBC 08/29/23 Range/Units 06:00 WBC 8.18 (3.29-11.43) 10^ 3/uL Hgb 12.60 (11.27-16.99) g/ dL Hct 37.0 (36-47) % MCV 91.4 (85-98) fl Plt Count 191 (157-399) 10^3/c mm Neut % (Auto) 66.6 % Neut # (Auto) 5.45 (1.8-7.7) 10^3/u L Vitals: Pulse Rate 71 08/29/23 06:21 Blood Pressure 140/91 08/29/23 06:21 Oxygen Delivery Me thod Room Air 08/29/23 05:34 Exam: Pre-Anes Outpt Exam: alert, oriented x 3, clear to auscultation bilaterally and regular rate & rhythm Cardiac Studies: Sestamibi Stress Test (Cardiology) 06/22/21
[2023-08-29] MEDS: ceFAZolin 2,000 MG in sodium chloride 0.9% (plus) 50 ML 100 MG IV (06:57)
[2023-08-29] MEDS: BUPivacaine 0.5% INJ 30 mL INJECTION (07:19)
--- NOTE | 2023-08-29 08:10 | PM.OP ---
Operative Report Date of procedure: August 29, 2023 Pre-op diagnosis: 32-year-old female at 39 weeks estimated gestational age presenting for repeat section and bilateral tubal ligation Post-op diagnosis: Status post low-transverse section and bilateral tubal ligation Procedure done: Repeat low-transverse section with intraoperative bilateral tubal ligation using modified Miles technique Specimens removed/disposition: 1. Male infant with a weight of 4 pounds 11 ounces and Apgars of 9 and 10 2. Placenta with a three-vessel cord delivered intact 3. Bilateral fallopian tubes with a right fallopian tube intact Pathology: Bilateral fallopian tubes with the right fallopian tube being tagged Surgeon: Duke Hess MD Anesthesia: Spinal Estimated blood loss: 200 mL Procedure: The patient was brought back to the operating room where she was prepped and draped in usual sterile fashion. Anesthesia was found to be adequate. A lower transverse skin incision was then made with a #10 blade. I then dissected down to the underlying subcutaneous tissue until arriving at the prerectal fascia. The fascia was then nicked with the scalpel bilaterally. The fascial incisions were then carried laterally with Turcios scissors. Attention was then turned to the superior aspect of the incision which was grasped with kochers and tented up away from the underlying rectus abdominis muscles. The muscles were then dissected away from the fascia manually, and later with Turcios scissors. Attention was then turned to the inferior aspect of the incision, and the fascia was dissected away from the underlying muscle in similar fashion. The rectus abdominis muscles were then spread manually. The peritoneum was entered manually. Excellent visualization of the uterus was noted. A lower transverse uterine incision was then made with a #10 blade. Upon arriving at the intrauterine cavity, the uterine incision was then extended manually. The infant was noted to be in vertex position. The baby was delivered without difficulty.. There was no nuchal cord. There is no meconium. The cord was cut and clamped. The baby was then handed to the Dr. Paula. The placenta was removed intact. The uterus was externalized. The intrauterine cavity was cleansed of any remaining debris. The uterine incision was reapproximated in 2 layers. The first layer was performed with 0 Vicryl in a running locked stitch. The second layer was an imbricating stitch also using 0 Vicryl. Attention was then turned to the right fallopian tube which was ligated cut and cauterized with 0 chromic in a modified Miles fashion. The left fallopian tube was also ligated cut and cauterized in similar fashion. The uterus was replaced into the abdomen. The peritoneum was then irrigated with warm saline. I reexamined the uterine incision and found it to be hemostatic. The rectus abdominis muscles were then reapproximated using 0 Vicryl in a running stitch. The fascia was then reapproximated using 0 Vicryl in running stitch. The subcutaneous tissue was also reapproximated using 0 Vicryl in a running stitch. The skin was reapproximated using germania. A sterile dressing was placed. All counts were correct x2. Both the mother and baby were in stable condition.
--- NOTE | 2023-08-29 08:35 | PC.NURSE ---
bar gutierrezgger placed on pt at this time
--- NOTE | 2023-08-29 08:40 | ANE.PACU2 ---
Inpatient post-anesthesia follow up: Airway intact: Yes Vital signs: Temperature 98.3 F Pulse Rate 58 Respiratory Rate 16 Blood Pressure 150/64 Pulse Oximetry 97 Oxygen Delivery Me thod Room Air Oxygen Flow Rate Fraction of Inspir ed Oxygen Hydration adequate: Yes Nausea and vomiting: No Pain level: 1 Mental status: Baseline
[2023-08-29] MEDS: PRENATAL VIT NO.130/IRON/FOLIC 1 EACH TABLET PO (10:21)
[2023-08-29] MEDS: docusate sodium 100 mg Capsule PO ×2 (10:22→21:00)
[2023-08-29] MEDS: levothyroxine 25 mcg Tablet 75 MCG PO (10:22)
[2023-08-29] MEDS: labetalol 200 mg Tablet 100 MG PO (10:22)
[2023-08-29] MEDS: dextrose 5%-lactated ringers 1,000 ML 125 ML IV (12:17)
[2023-08-29] MEDS: ketorolac 30 mg/mL INJ IVP (14:04)
[2023-08-29] MEDS: escitalopram 10 mg Tablet PO (21:00)
[2023-08-29] MEDS: ibuprofen 800 mg tablet PO (21:00)
[2023-08-29 21:22] LABS: Hematocrit 35.5 % (36-47); Mean Corpuscular HGB Conc 33.5 g/dL (30-55); Mean Corpuscular Hemoglobin 30.7 pg (27-33); Mean Corpuscular Volume 91.5 fl (85-98); Mean Platelet Volume 10.4 fL (7.4-10.4); Platelet Count 187 10^3/cmm (157-399); Red Blood Count 3.88 10^6/uL (3.85-5.65); Red Cell Distribution Width 14.2 % (12.1-15.1); White Blood Count 9.81 10^3/uL (3.29-11.43)
[2023-08-30 03:00] VITALS: BP 115/70; PULSE 60; RESP 16; TEMP 36.4
--- NOTE | 2023-08-30 07:12 | P.DS_ITS ---
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 The surgery was unremarkable. There were no complications. Her course was also unremarkable. She is ambulating several hours after surgery. Her pain was well-controlled. She passed flatus. Her diet was advanced and she tolerated it well. Her bleeding was within normal limits. Information Peripartum Data: Delivery Method: Vaginal Physical Exam Narrative: She is in no acute distress Lungs are clear auscultation bilaterally Her heart has a regular rate and rhythm Her fundus is below the umbilicus and firm Her dressing is clean, dry and intact Her extremities have trace edema Urinary Catheter Management: Rosa: Cath Placed During This Visit: yes, but has since been removed by the nurse Reason for Continuing Indwelling Catheter: Decision to DC Catheter Urinary Catheter Date of Insertion: 08/29/23 Urinary Catheter Time of Insertion: 07:10 Date Urinary Catheter Removed: 08/29/23 Time Urinary Catheter Discontinued: 17:35 Discharge Data Studies Completed and Pending Pending at discharge Category Date Time Status Pathology: Surgical [PTH] Routine Pth 08/29/23 08:17 Received Laboratory Results WBC 9.81 10^3/uL (3.29-11.43) 08/29/23 19:43 RBC 3.88 10^6/uL (3.85-5.65) 08/29/23 19:43 Hgb 11.90 g/dL (11.27-16.99) 08/29/23 19:43 Hct 35.5 % (36-47) L 08/29/23 19:43 MCV 91.5 fl (85-98) 08/29/23 19:43 MCH 30.7 pg (27-33) 08/29/23 19:43 MCHC 33.5 g/dL (30-55) 08/29/23 19:43 RDW 14.2 % (12.1-15.1) 08/29/23 19:43 Plt Count 187 10^3/cmm (157-399) 08/29/23 19:43 MPV 10.4 fL (7.4-10.4) 08/29/23 19:43 Neut % (Auto) 66.6 % 08/29/23 06:00 Lymph % (Auto) 25.2 % 08/29/23 06:00 [place] % (Auto) 5.4 % 08/29/23 06:00 Eos % (Auto) 2.1 % 08/29/23 06:00 Baso % (Auto) 0.2 % 08/29/23 06:00 Neut # (Auto) 5.45 10^3/uL (1.8-7.7) 08/29/23 06:00 Lymph # (Auto) 2.1 10^3/uL (0.8-4.8) 08/29/23 06:00 [place] # (Auto) 0.4 10^3/uL (0.2-0.9) 08/29/23 06:00 Eos # (Auto) 0.2 10^3/uL (0.0-0.8) 08/29/23 06:00 Baso # (Auto) 0.0 10^3/uL (0.0-0.1) 08/29/23 06:00 Nucleated RBC % (auto) 0 % 08/29/23 06:00 Nucleated RBCs # 0.0 /100WBC 08/29/23 06:00 Blood Type B Positive 08/29/23 06:00 Rho(D) Type Rh positive 08/29/23 06:00 Antibody Screen Negative 08/29/23 06:00 Vitals Last Vital Signs Temp 97.6 F 08/30/23 03:00 Pulse 60 08/30/23 03:00 Resp 16 08/30/23 03:00 BP 115/70 08/30/23 03:00 Pulse Ox 97 08/29/23 21:15 O2 Del Method Room Air 08/29/23 21:15 Results Labs OB ([facility]): Obstetrics US 07/18/23 Blood Type B Positive 08/29/23 Antibody Screen Negative 08/29/23 Hct 35.5 % (36-47) L 08/29/23 Hgb 11.90 g/dL (11.27-16.99) 08/29/23 Rho(D) Type Rh positive 08/29/23 Plt Count 187 10^3/cmm (157-399) 08/29/23 HCG, Qual Negative (Negative) 03/17/21 Urine Opiates Screen Negative ng/mL (Negative) 03/27/21 Ur Barbiturates Screen Negative ng/mL (Negative) 03/27/21 Ur Phencyclidine Scrn Negative ng/mL (Negative) 03/27/21 Ur Amphetamines Screen Negative ng/mL (Negative) 03/27/21 U Benzodiazepines Scrn Negative ng/mL (Negative) 03/27/21 Urine Cocaine Screen Negative ng/mL (Negative) 03/27/21 U Marijuana (THC) Screen Negative ng/mL (Negative) 03/27/21 Discharge Plan Discharge Patient Disposition: Home Condition: Stable Prescriptions: New ibuprofen 800 mg Tablet 800 mg PO TID Qty: 45 0RF hydrocodone-acetaminophen 5-325 mg Tablet 1 tab PO Q6H PRN (Reason: Moderate To Severe Pain) Qty: 28 0RF escitalopram oxalate 10 mg Tablet 10 mg PO DAILY Qty: 30 3RF Vitamin 27 mg iron- 800 mcg Tablet 1 tab PO DAILY Qty: 90 0RF Continued albuterol sulfate 90 mcg/actuation HFA aerosol inhaler 2 inh INHALATION Q6H PRN (Reason: shortness of breath or wheezing) Qty: 8 0RF levothyroxine 75 mcg tablet 75 mcg PO DAILY Discontinued paroxetine HCl [Paxil] 10 mg tablet 10 mg PO .HS 30 Days Qty: 30 1RF labetalol 100 mg tablet 100 mg PO DAILY Discharge Orders: Discharge Order (Routine); Ordered 08/30/23 Ordered By: Duke Hess Referrals: Duke Hess MD [Physician] - 4-7 days Discharge Diet: Usual diet Discharge Activity: Limit activity as instructed Patient Instructions: Opioid Safety 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
[2023-08-30 08:00] VITALS: BP 129/78; PULSE 84; RESP 16; TEMP 36.9
[2023-08-30] MEDS: levothyroxine 25 mcg Tablet 75 MCG PO (09:36)
[2023-08-30] MEDS: ibuprofen 800 mg tablet PO (09:36)
[2023-08-30] MEDS: PRENATAL VIT NO.130/IRON/FOLIC 1 EACH TABLET PO (09:36)
[2023-08-30] MEDS: docusate sodium 100 mg Capsule PO (09:37)
[2023-08-30] MEDS: ferrous sulfate EC 325 mg Tablet PO (09:37)
[2023-08-30] MEDS: labetalol 200 mg Tablet 100 MG PO (09:37)
[2023-08-30] MEDS: HYDROcodone-acetaminophen 5-325 mg Tablet PO (09:37)
[2023-08-30 11:41] VITALS: BP 147/88; PULSE 18; PULSE 83; RESP 18; RESP 83; TEMP 36.6
== END 2023-08-30 11:42 | disposition home or self-care (01) | DRG 785 ==
PROVIDERS: Admitting Provider Family Medicine; PCP Family Medicine; Visit Provider Family Medicine
PROC: 10D00Z1 Extraction of Products of Conception, Low, Open Approach (ICD-10-PCS; CPT 59514; principal; 2023-08-29 07:00)
DX: O34.211 Maternal care for low transverse scar from previous cesarean delivery (principal); Z3A.39 39 weeks gestation of pregnancy; Z37.0 Single live birth; Z30.2 Encounter for sterilization; O99.334 Smoking (tobacco) complicating childbirth; F17.210 Nicotine dependence, cigarettes, uncomplicated; O99.344 Other mental disorders complicating childbirth; F32.9 Major depressive disorder, single episode, unspecified; F43.10 Post-traumatic stress disorder, unspecified
CPT/HCPCS: 36415; 51702; 59025; 59409; 85025; 85027; 86850; 86900; 88302; 96374; 96376; J0690; J1885; J2274; J2371; J2765; J3010; J3490; J7120; J7121